=== PATIENT | female | born 1985 | race Caucasian/White ===

== ENCOUNTER 2017-08-12 13:14 | Emergency (ER) | payer OTHER ==
[2017-08-12 14:32] LABS: ADD MAN DIFF? NO
[2017-08-12 14:38] LABS: BASO # 0.1 x10^3/uL (0.0-0.2); BASO % 1 % (0-3); EOS # 0.3 x10^3/uL (0.0-0.7); EOS % 3 % (0-3); HEMATOCRIT 41.9 % (36.0-47.0); HEMOGLOBIN 14.3 g/dL (12.0-15.5); LYMPH # 3.7 x10^3/uL (1.0-4.8); LYMPH % 33 % (24-48); MEAN CORPUSCULAR HEMOGLOBIN 31 pg (25-35); MEAN CORPUSCULAR HGB CONC 34 g/dL (31-37); MEAN CORPUSCULAR VOLUME 90 fL (79-100); MONO # 0.7 x10^3/uL (0.0-1.1); MONO % 6 % (0-9); NEUT # 6.5 x10^3uL (1.8-7.7); NEUT % 58 % (31-73); PLATELET COUNT 367 x10^3/uL (140-400); RED BLOOD COUNT 4.64 x10^6/uL (3.50-5.40); RED CELL DISTRIBUTION WIDTH 13.1 % (11.5-14.5); WHITE BLOOD COUNT 11.3 x10^3/uL (4.0-11.0)
[2017-08-12 14:44] LABS: PROTHROMBIN TIME PATIENT 12.9 SEC (11.7-14.0)
[2017-08-12 14:46] LABS: BILIRUBIN,URINE NEGATIVE (NEG); CLARITY,URINE CLEAR; COLOR,URINE YELLOW; GLUCOSE,URINE NEGATIVE (NEG); NITRITE,URINE NEGATIVE (NEG); PH,URINE 5.5; PROTEIN,URINE NEGATIVE (NEG-TRACE); UROBILINOGEN,URINE 0.2 mg/dL (0.2 mg/dL)
[2017-08-12 14:50] LABS: ANION GAP 12 (6-14); BLOOD UREA NITROGEN 10 mg/dL (7-20); BUN/CREATININE RATIO 13 (6-20); CALCIUM 9.6 mg/dL (8.5-10.1); CARBON DIOXIDE 24 mmol/L (21-32); CHLORIDE 104 mmol/L (98-107); CREATININE 0.8 mg/dL (0.6-1.0); D-DIMER 0.55 ug/mlFEU (0.00-0.50); GFR 82.6; GLUCOSE 90 mg/dL (70-99); POTASSIUM 4.2 mmol/L (3.5-5.1); SODIUM 140 mmol/L (136-145)
[2017-08-12 14:58] LABS: ALBUMIN 3.9 g/dL (3.4-5.0); ALBUMIN/GLOBULIN RATIO 1.1 (1.0-1.7); ALK PHOS 91 U/L (46-116); ALT (SGPT) 24 U/L (14-59); AST (SGOT) 16 U/L (15-37); LIPASE 111 U/L (73-393); TOTAL BILIRUBIN 0.5 mg/dL (0.2-1.0); TOTAL PROTEIN 7.6 g/dL (6.4-8.2)
[2017-08-12 14:59] LABS: TROPONINI < 0.017 ng/mL (0.000-0.055)
[2017-08-12 15:01] LABS: BACTERIA,URINE MANY /HPF (0-FEW); RBC,URINE 0 /HPF (0-2); SQUAMOUS EPITHELIAL CELL,UR MANY /LPF; WBC,URINE 0 /HPF (0-4)
[2017-08-12 15:02] LABS: THYROID STIM HORMONE (TSH) 0.944 uIU/mL (0.358-3.74)
[2017-08-12 15:05] LABS: CKMB INDEX 0.6 % (0-4); CKMB MASS < 0.5 ng/mL (0.0-3.6); CREATINE KINASE 80 U/L (26-192)
[2017-08-12 15:05] LABS: NT-PRO BNP 65 pg/mL (0-124)
[2017-08-12] MEDS: IOHEXOL 300 MG/ML 100ML VIAL. IV (15:05)
[2017-08-12] MEDS: MORPHINE SULFATE 10 MG/ML VIAL. IV (15:49)
[2017-08-12] MEDS: diazePAM 5 MG TABLET PO (16:41)
[2017-08-12] MEDS: fentaNYL PF VIAL 100 MCG/2 ML VIAL IV (16:42)
== END 2017-08-12 17:23 | disposition home or self-care (01) ==
LOC: ER 13:14
DX: M79.672 Pain in left foot (principal); K21.9 Gastro-esophageal reflux disease without esophagitis; Z86.711 Personal history of pulmonary embolism; Z88.1 Allergy status to other antibiotic agents
CPT/HCPCS: 36415; 71045; 71275; 80053; 81001; 82553; 83690; 83735; 83880; 84443; 84484; 85025; 85379; 85610; 87086; 93005; 96374; 96375; 99285-25; J2270; J3010; Q9967

== ENCOUNTER 2018-03-14 23:39 | Emergency (ER) | payer OTHER ==
[~2018-03-14] VITALS: Ht 172.7 cm; Wt 81.6 kg
[~2018-03-14 23:39] MED LIST: BUPR100T7; DIAZ5TAB PO; NAPR500T8 PO; TRAZ-86
[2018-03-14 23:40] VITALS: BP 152/87
--- NOTE | 2018-03-15 00:23 | PHYS DOC ---
Past Medical History Past Medical History: DVT, GERD Past Surgical History: Additional Past Surgical Histo: uterine oblation Alcohol Use: None Drug Use: None Adult General Chief Complaint Chief Complaint: LOWER BACK PAIN OR INJURY [facility] HPI Patient is a 32 year old female who presents with low back pain. Patient had sudden onset of low back pain when she was lifting a laundry basket full of clothes earlier this evening. The pain is in the lower mid and left lumbar area. She does have some radiation of pain down the bilateral posterior thighs. Radiation does not extend to the knees. No weakness, numbness, tingling. No loss of motor strength. No difficulty with urination or BMs. Patient has no prior history of back injury. No recent fever or chills. She was at baseline health prior to onset of symptoms. Review of Systems Review of Systems Constitutional: Denies fever or chills HENT: Denies nasal congestion Respiratory: Denies cough or shortness of breath Cardiovascular: No additional information not addressed in HPI GI: Denies : Denies Musculoskeletal: Denies back pain Integument: Denies rash Neurologic: Denies headache All other systems were reviewed and found to be within normal limits, except as documented in this note. Current Medications Current Medications Current Medications Medications (Trade) Dose Ordered Sig/[place] Start Time Stop Time Status Last Admin Dose Admin Diazepam (Valium) 4 mg 1X ONCE 03/15/18 00:30 03/15/18 00:31 DC 03/15/18 00:34 4 MG Ibuprofen (Motrin) 800 mg 1X ONCE 03/15/18 00:30 03/15/18 00:31 DC 03/15/18 00:33 800 MG Morphine Sulfate (Morphine Sulfate) 4 mg STK-MED ONCE 03/15/18 00:30 03/15/18 00:33 IN Allergies Allergies Allergies Coded Allergies Type Severity Reaction Last Updated Verified ciprofloxacin Allergy Unknown 08/12/17 Yes Physical Exam Physical Exam Constitutional: Well developed, well nourished, mild distress with some antalgic movements, non-toxic appearance HENT: Normocephalic, atraumatic, bilateral external ears normal, oropharynx moist Neck: Normal range of motion, no tenderness Cardiovascular:Heart rate regular rhythm, no murmur Skin: Warm, dry, no erythema, no rash Back: TTP and muscle spasm present over lumbar paraspinal muscles with L worse than Right. Extremities: No tenderness, no edema Neurologic: Alert and oriented X 3, normal motor function, 5/5 motor strength bilateral LE's, 2/4 DTR's at achilles and patellar levels bilat. Sensation to light touch intact over all dermatomes of the bilateral LE's Psychologic: Affect normal Current Patient Data Vital Signs Vital Signs Date Time Temp Pulse Resp B/P (MAP) Pulse Ox O2 Delivery O2 Flow Rate FiO2 03/15/18 00:30 18 97 Room Air 03/14/18 23:40 99 152/87 (108) EKG EKG [] Radiology/Procedures Radiology/Procedures [] Course & Med Decision Making Course & Med Decision Making Pertinent Labs and Imaging studies reviewed. (See chart for details) Patient is evaluated immediately on arrival to her room. She has classic low back strain. Possibly with some bulging disc involvement given her symptoms of radiation of pain down the bilateral thighs. No positive findings on physical examination. No red flag complaints or findings. In the ER, the patient will be given medication for pain and muscle spasm. 01:00: Patient now status post medications for pain. She is feeling much improved. Plan is for discharge home. She is given medications for pain and muscle spasm to use at home. Opiate precautions are discussed. Patient is advised not to work or drive while using strong pain medication. Patient will follow up with her primary care doctor or return to the ER for any new or worsening symptoms. Dragon Disclaimer Dragon Disclaimer This electronic medical record was generated, in whole or in part, using a voice recognition dictation system. Departure Departure Disposition: 01 HOME, SELF-CARE Condition: GOOD Referrals: UNKNOWN PCP NAME (PCP) Scripts Diazepam (DIAZEPAM) 5 Mg Tablet 5 MG PO BID for muscle spasm, #20 TAB Prov: MIKE ZHANG DO 03/15/18 Hydrocodone/Apap 5-325 (NORCO 5-325 TABLET) 1 Each Tablet 1-2 EACH PO PRN Q6HRS PRN for SEVERE PAIN, #20 as needed for pain Prov: MIKE ZHANG DO 03/15/18 Ibuprofen (IBUPROFEN) 800 Mg Tablet 800 MG PO PRN TID PRN for PAIN, #30 TAB take with food or milk to avoid upsetting stomach Prov: MIKE ZHANG DO 03/15/18 MIKE ZHANG DO Mar 15, 2018 00:23
[2018-03-15] MEDS ORDERED: MORPHINE SULFATE 4 MG/ML VIAL. ONE (00:30)
[2018-03-15] MEDS ORDERED: MORPHINE SULFATE 10 MG/ML VIAL. IV ONE (00:30)
[2018-03-15] MEDS ORDERED: diazePAM 2 MG TABLET PO ONE (00:30)
[2018-03-15] MEDS ORDERED: IBUPROFEN 400 MG TABLET. PO ONE (00:30)
[2018-03-15] MEDS ORDERED: IBUP-1060 PO (00:36)
[2018-03-15] MEDS ORDERED: DIAZ5TAB4 PO (00:36)
[2018-03-15] MEDS ORDERED: HYDR-3164 PO (00:36)
== END 2018-03-15 01:05 | disposition home or self-care (01) ==
LOC: ER 23:39
DX: S39.012A Strain of muscle, fascia and tendon of lower back, initial encounter (principal); M79.652 Pain in left thigh; M79.651 Pain in right thigh; K21.9 Gastro-esophageal reflux disease without esophagitis; Z86.718 Personal history of other venous thrombosis and embolism; Z88.1 Allergy status to other antibiotic agents; X50.0XXA Overexertion from strenuous movement or load, initial encounter; Y93.89 Activity, other specified; Y92.89 Other specified places as the place of occurrence of the external cause; Y99.8 Other external cause status
CPT/HCPCS: 96374; 99283; J2270

== ENCOUNTER 2018-10-26 23:33 | Emergency (ER) | payer OTHER ==
[~2018-10-26] VITALS: Ht 165.1 cm; Wt 78.5 kg
[~2018-10-26 23:33] MED LIST changes: +DIAZ5TAB4 PO; +HYDR-3164 PO; +IBUP-1060 PO
[2018-10-27 00:01] VITALS: BP 132/88
[2018-10-27 00:03] LABS: BILIRUBIN,URINE NEGATIVE (NEG); CLARITY,URINE CLEAR; COLOR,URINE YELLOW; NITRITE,URINE NEGATIVE (NEG); PH,URINE 5.5; PROTEIN,URINE NEGATIVE (NEG-TRACE); UROBILINOGEN,URINE 0.2 mg/dL (0.2 mg/dL)
[2018-10-27 00:11] LABS: BACTERIA,URINE MODERATE /HPF (0-FEW); RBC,URINE 0 /HPF (0-2); SQUAMOUS EPITHELIAL CELL,UR MANY /LPF; WBC,URINE OCC /HPF (0-4)
[2018-10-27] MEDS ORDERED: PRED20TA PO (00:52)
[2018-10-27] MEDS ORDERED: ORPH100T PO (00:52)
--- NOTE | 2018-10-27 00:52 | PHYS DOC ---
Past Medical History Past Medical History: DVT, GERD, Other Additional Past Medical Histor: Chronic Back pain Past Surgical History: , Lumbar Laminectomy Additional Past Surgical Histo: uterine ablation Alcohol Use: Occasionally Drug Use: None Adult General Chief Complaint Chief Complaint: PELVIC PAIN HPI HPI Patient is a 33 year old [f__sex] who presents with [] Review of Systems Review of Systems Constitutional: Denies fever or chills [] Eyes: Denies change in visual acuity, redness, or eye pain [] HENT: Denies nasal congestion or sore throat [] Respiratory: Denies cough or shortness of breath [] Cardiovascular: No additional information not addressed in HPI [] GI: Denies abdominal pain, nausea, vomiting, bloody stools or diarrhea [] : Denies dysuria or hematuria [] Musculoskeletal: Denies back pain or joint pain [] Integument: Denies rash or skin lesions [] Neurologic: Denies headache, focal weakness or sensory changes [] Endocrine: Denies polyuria or polydipsia [] All other systems were reviewed and found to be within normal limits, except as documented in this note. Allergies Allergies Allergies Coded Allergies Type Severity Reaction Last Updated Verified ciprofloxacin Allergy Unknown 08/12/17 Yes Physical Exam Physical Exam Constitutional: Well developed, well nourished, no acute distress, non-toxic appearance. [] HENT: Normocephalic, atraumatic, bilateral external ears normal, oropharynx moist, no oral exudates, nose normal. [] Eyes: PERRLA, EOMI, conjunctiva normal, no discharge. [] Neck: Normal range of motion, no tenderness, supple, no stridor. [] Cardiovascular:Heart rate regular rhythm, no murmur [] Lungs & Thorax: Bilateral breath sounds clear to auscultation [] Abdomen: Bowel sounds normal, soft, no tenderness, no masses, no pulsatile masses. [] Skin: Warm, dry, no erythema, no rash. [] Back: No tenderness, no CVA tenderness. [] Extremities: No tenderness, no cyanosis, no clubbing, ROM intact, no edema. [] Neurologic: Alert and oriented X 3, normal motor function, normal sensory function, no focal deficits noted. [] Psychologic: Affect normal, judgement normal, mood normal. [] Current Patient Data Vital Signs Vital Signs Date Time Temp Pulse Resp B/P (MAP) Pulse Ox O2 Delivery O2 Flow Rate FiO2 10/27/18 00:01 98.1 114 16 132/88 (103) 98 Room Air 98.1 Lab Values Laboratory Tests Test 10/26/18 23:40 10/26/18 23:46 Urine Collection Type Unknown Urine Color Yellow Urine Clarity Clear Urine pH 5.5 Urine Specific [place] 1.025 Urine Protein Negative mg/dL (NEG-TRACE) Urine Glucose (UA) Negative mg/dL (NEG) Urine Ketones (Stick) Negative mg/dL (NEG) Urine Blood Negative (NEG) Urine Nitrite Negative (NEG) Urine Bilirubin Negative (NEG) Urine Urobilinogen Dipstick 0.2 mg/dL (0.2 mg/dL) Urine Leukocyte Esterase Negative (NEG) Urine RBC 0 /HPF (0-2) Urine WBC Occ /HPF (0-4) Urine Squamous Epithelial Cells Many /LPF Urine Bacteria Moderate /HPF (0-FEW) Urine Mucus Mod /LPF POC Urine HCG, Qualitative Hcg negative (Negative) EKG EKG [] Radiology/Procedures Radiology/Procedures [] Course & Med Decision Making Course & Med Decision Making Pertinent Labs and Imaging studies reviewed. (See chart for details) [] Dragon Disclaimer Dragon Disclaimer This electronic medical record was generated, in whole or in part, using a voice recognition dictation system. Departure Departure Impression: Primary Impression: Back pain Disposition: HOME, SELF-CARE Condition: STABLE Referrals: UNKNOWN PCP NAME (PCP) MIKE MORAN MD Patient Instructions: Back Pain, Adult, [id number] Scripts Orphenadrine Citrate (ORPHENADRINE CITRATE) 100 Mg Tablet.er 100 MG PO BID PRN for MUSCLE PAIN, #14 Prov: CA JACOBO DO 10/27/18 Prednisone (PREDNISONE) 20 Mg Tablet 2 TAB PO DAILY, #8 TAB Prov: CA JACOBO DO 10/27/18 Problem Qualifiers Primary Impression: Back pain Back pain location: low back pain Chronicity: acute Back pain laterality: left Sciatica presence: with sciatica Sciatica laterality: sciatica of left side Qualified Codes: M54.42 - Lumbago with sciatica, left side CA JACOBO DO Oct 27, 2018 00:52
[2018-10-27] MEDS ORDERED: ORPHENADRINE CITRATE 60 MG/2 ML VIAL. IM ONE (01:15)
[2018-10-27] MEDS ORDERED: KETOROLAC 30 MG/ML VIAL. IM ONE (01:15)
[2018-10-27] MEDS ORDERED: DEXAMETHASONE 4 MG TABLET PO ONE (01:15)
== END 2018-10-27 01:20 | disposition home or self-care (01) ==
LOC: ER 23:33
DX: M54.42 Lumbago with sciatica, left side (principal); G89.29 Other chronic pain; K21.9 Gastro-esophageal reflux disease without esophagitis; Z86.718 Personal history of other venous thrombosis and embolism; Z98.890 Other specified postprocedural states; Z88.1 Allergy status to other antibiotic agents
CPT/HCPCS: 81001; 81025; 87086; 96372; 99284; J1885; J2360; J8540

== ENCOUNTER 2019-04-09 01:49 | Emergency (ER) | payer MEDICAID ==
[~2019-04-09] VITALS: Ht 165.1 cm; Wt 79.4 kg
[~2019-04-09 01:49] MED LIST changes: +ORPH100T PO; +PRED20TA PO; +TRAZ-123 PO; -TRAZ-86
[2019-04-09 03:16] LABS: BILIRUBIN,URINE NEGATIVE (NEG); CLARITY,URINE CLOUDY; COLOR,URINE YELLOW; NITRITE,URINE NEGATIVE (NEG); PH,URINE 5.5; PROTEIN,URINE NEGATIVE (NEG-TRACE); UROBILINOGEN,URINE 0.2 mg/dL (0.2 mg/dL)
--- NOTE | 2019-04-09 03:18 | PHYS DOC ---
Past Medical History Past Medical History: DVT, GERD, Other Additional Past Medical Histor: Chronic Back pain Past Surgical History: , Lumbar Laminectomy Additional Past Surgical Histo: uterine ablation Additional Information: Current ED smoker, 3-4 cigarrettes a day. Alcohol Use: None Drug Use: None Adult General Chief Complaint Chief Complaint: ABDOMINAL PAIN HPI HPI Patient is a 33 year old female who presents with abdominal pain. Onset yesterday. Patient states pain was intermittent then woke her up at midnight tonight. Location: Right hip radiates to groin. character pain is described as sharp. Associated sx: nausea. Patient denies vomiting, diarrhea, chest pain, shortness of breath, fevers, chills, constipation, changes in bowel or bladder habits. Patient also denies trauma to the area. Patient states that she has maintained a normal diet and not eaten anything out of the ordinary recently. Alleviating factors are heat and pressure to the area. Review of Systems Review of Systems Constitutional: Denies fever or chills Eyes: Denies redness or eye pain HENT: Denies nasal congestion or sore throat Respiratory: Denies cough or shortness of breath Cardiovascular: Denies chest pain or palpitations GI: Reports mild abdominal pain, nausea, or vomiting : Denies dysuria or hematuria Musculoskeletal: Denies back pain or joint pain. Right hip pain that radiates to groin Integument: Denies rash or skin lesions Neurologic: Denies headache, focal weakness or sensory changes Complete systems were reviewed and found to be within normal limits, except as documented in this note. Current Medications Current Medications Current Medications Medications (Trade) Dose Ordered Sig/[facility] Start Time Stop Time Status Last Admin Dose Admin Ceftriaxone Sodium (Rocephin) 1 gm 1X ONCE 04/09/19 05:00 04/09/19 05:01 Famotidine (Pepcid Vial) 20 mg 1X ONCE 04/09/19 03:30 04/09/19 03:31 DC 04/09/19 03:54 20 MG Ketorolac Tromethamine (Toradol 15mg Vial) 15 mg 1X ONCE 04/09/19 03:30 04/09/19 03:31 DC 04/09/19 03:54 15 MG Ondansetron HCl (Zofran) 4 mg 1X ONCE 04/09/19 03:30 04/09/19 03:31 DC 04/09/19 03:54 4 MG Sodium Chloride 1,000 ml @ 1,000 mls/hr 1X ONCE 04/09/19 03:30 04/09/19 04:29 DC 04/09/19 03:53 1,000 MLS/HR Allergies Allergies Allergies Coded Allergies Type Severity Reaction Last Updated Verified ciprofloxacin Allergy Unknown 08/12/17 Yes Physical Exam Physical Exam Constitutional: Well developed, well nourished, no acute distress, non-toxic appearance HENT: Normocephalic, atraumatic, oropharynx moist Eyes: PERRL, EOMI, conjunctiva normal, no discharge Neck: Normal range of motion, no tenderness, supple Cardiovascular: Heart rate normal, regular rhythm Lungs & Thorax: Bilateral breath sounds clear to auscultation, no wheezing Abdomen: Soft, no tenderness, no guarding, no rebound, nondistended Skin: Warm, dry, no erythema, no rash Back: No tenderness, no CVA tenderness Musculoskeletal: Hip and pelvis grossly normal without deformity or swelling. Extremities: No tenderness, ROM intact, no edema Neurologic: Alert and oriented X 3, normal motor function, normal sensory function, no focal deficits noted Psychologic: Affect normal, judgement normal, mood normal Current Patient Data Vital Signs Vital Signs Date Time Temp Pulse Resp B/P (MAP) Pulse Ox O2 Delivery O2 Flow Rate FiO2 04/09/19 02:50 98.5 90 16 121/74 (90) 98 Room Air 98.5 Lab Values Laboratory Tests Test 04/09/19 03:00 04/09/19 03:08 04/09/19 03:15 Urine Collection Type Unknown Urine Color Yellow Urine Clarity Cloudy Urine pH 5.5 Urine Specific [place] >=1.030 Urine Protein Negative mg/dL (NEG-TRACE) Urine Glucose (UA) Negative mg/dL (NEG) Urine Ketones (Stick) Negative mg/dL (NEG) Urine Blood Large (NEG) Urine Nitrite Negative (NEG) Urine Bilirubin Negative (NEG) Urine Urobilinogen Dipstick 0.2 mg/dL (0.2 mg/dL) Urine Leukocyte Esterase Moderate (NEG) Urine RBC Occ /HPF (0-2) Urine WBC 20-40 /HPF (0-4) Urine Squamous Epithelial Cells Many /LPF Urine Bacteria Many /HPF (0-FEW) Urine Mucus Mod /LPF POC Urine HCG, Qualitative Hcg negative (Negative) White Blood Count 10.3 x10^3/uL (4.0-11.0) Red Blood Count 3.88 x10^6/uL (3.50-5.40) Hemoglobin 12.2 g/dL (12.0-15.5) Hematocrit 35.4 % (36.0-47.0) L Mean Corpuscular Volume 91 fL (79-100) Mean Corpuscular Hemoglobin 32 pg (25-35) Mean Corpuscular Hemoglobin Concent 35 g/dL (31-37) Red Cell Distribution Width 13.0 % (11.5-14.5) Platelet Count 346 x10^3/uL (140-400) Neutrophils (%) (Auto) 67 % (31-73) Lymphocytes (%) (Auto) 22 % (24-48) L Monocytes (%) (Auto) 8 % (0-9) Eosinophils (%) (Auto) 2 % (0-3) Basophils (%) (Auto) 1 % (0-3) Neutrophils # (Auto) 7.0 x10^3/uL (1.8-7.7) Lymphocytes # (Auto) 2.3 x10^3/uL (1.0-4.8) Monocytes # (Auto) 0.9 x10^3/uL (0.0-1.1) Eosinophils # (Auto) 0.2 x10^3/uL (0.0-0.7) Basophils # (Auto) 0.1 x10^3/uL (0.0-0.2) Sodium Level 140 mmol/L (136-145) Potassium Level 4.0 mmol/L (3.5-5.1) Chloride Level 104 mmol/L (98-107) Carbon Dioxide Level 28 mmol/L (21-32) Anion Gap 8 (6-14) Blood Urea Nitrogen 20 mg/dL (7-20) Creatinine 1.0 mg/dL (0.6-1.0) Estimated GFR (Cockcroft-Gault) 63.1 BUN/Creatinine Ratio 20 (6-20) Glucose Level 88 mg/dL (70-99) Calcium Level 8.9 mg/dL (8.5-10.1) Magnesium Level 1.9 mg/dL (1.8-2.4) Total Bilirubin 0.3 mg/dL (0.2-1.0) Aspartate Amino Transferase (AST) 27 U/L (15-37) Alanine Aminotransferase (ALT) 29 U/L (14-59) Alkaline Phosphatase 59 U/L (46-116) Total Protein 6.9 g/dL (6.4-8.2) Albumin 3.4 g/dL (3.4-5.0) Albumin/Globulin Ratio 1.0 (1.0-1.7) Lipase 160 U/L (73-393) Laboratory Tests 04/09/19 03:15 Laboratory Tests 04/09/19 03:15 EKG EKG [] Radiology/Procedures Radiology/Procedures PROCEDURE: CT ABDOMEN PELVIS WO CONTRAST CT abdomen and pelvis without contrast PQRS statement: CT scans at this facility use dose reduction including either automated exposure control, iterative reconstructions, and /or weight based radiation dosing via mA and kV modification when appropriate to reduce radiation dose to as low as reasonably achievable. HISTORY: Right flank pain. Ureteral calculi. COMPARISON: CT abdomen and pelvis May 28, 2013. Abdomen findings: Subpleural thin linear atelectasis or scarring posterior right lower lobe. This is stable. Pancreas, spleen, adrenal glands, kidneys, gallbladder and liver are unremarkable. No urinary calculi or hydronephrosis. The appendix is negative. No abdominal fluid. Pelvis findings: Pelvic phleboliths stable prior study. No bladder calculi. Bladder, uterus, ovaries, rectum and bones are unremarkable. No pelvic free fluid evident. IMPRESSION: No acute process. Appendix is negative. No urinary calculi or hydronephrosis. Electronically signed by: Gerber Walton MD (04/09/2019 4:07 AM) [facility] Course & Med Decision Making Course & Med Decision Making Pertinent Labs and Imaging studies reviewed. (See chart for details) [] Dragon Disclaimer Dragon Disclaimer This electronic medical record was generated, in whole or in part, using a voice recognition dictation system. Departure Departure Impression: Primary Impression: Pyelonephritis Disposition: 01 HOME, SELF-CARE Condition: STABLE Referrals: RAYNA FLETCHER PA-C (PCP) Patient Instructions: Pyelonephritis, Adult, [id number] Scripts Hydrocodone/Apap 5-325 (NORCO 5-325 TABLET) 1 Each Tablet 0.5-1 TAB PO PRN Q6HRS PRN for PAIN, #8 TAB 0 Refills Prov: JACOBO,CA R DO 04/09/19 Ondansetron (ONDANSETRON ODT) 4 Mg Tab.rapdis 1 TAB PO PRN Q6-8HRS PRN for NAUSEA, #16 TAB Prov: CA JACOBO DO 04/09/19 Cephalexin (KEFLEX) 500 Mg Capsule 500 MG PO TID for 7 Days, #21 CAP Prov: AC JACOBO DO 04/09/19 CA JACOBO DO Apr 09, 2019 03:18
[2019-04-09 03:20] LABS: BASO # 0.1 x10^3/uL (0.0-0.2); BASO % 1 % (0-3); EOS # 0.2 x10^3/uL (0.0-0.7); EOS % 2 % (0-3); HEMATOCRIT 35.4 % (36.0-47.0); HEMOGLOBIN 12.2 g/dL (12.0-15.5); LYMPH # 2.3 x10^3/uL (1.0-4.8); LYMPH % 22 % (24-48); MEAN CORPUSCULAR HEMOGLOBIN 32 pg (25-35); MEAN CORPUSCULAR HGB CONC 35 g/dL (31-37); MEAN CORPUSCULAR VOLUME 91 fL (79-100); MONO # 0.9 x10^3/uL (0.0-1.1); MONO % 8 % (0-9); NEUT % 67 % (31-73); PLATELET COUNT 346 x10^3/uL (140-400); RED BLOOD COUNT 3.88 x10^6/uL (3.50-5.40); WHITE BLOOD COUNT 10.3 x10^3/uL (4.0-11.0)
[2019-04-09 03:25] LABS: BACTERIA,URINE MANY /HPF (0-FEW); RBC,URINE OCC /HPF (0-2); WBC,URINE 20-40 /HPF (0-4)
[2019-04-09 03:26] LABS: SQUAMOUS EPITHELIAL CELL,UR MANY /LPF
[2019-04-09 03:30] LABS: CALCIUM 8.9 mg/dL (8.5-10.1); GFR 63.1
[2019-04-09] MEDS ORDERED: KETOROLAC 15 MG/ML VIAL. IVP ONE (03:30)
[2019-04-09] MEDS ORDERED: ONDANSETRON PF 4 MG/2 ML VIAL. IV ONE (03:30)
[2019-04-09] MEDS ORDERED: FAMOTIDINE 20 MG/2 ML VIAL IVP ONE (03:30)
[2019-04-09] MEDS ORDERED: IV NORMAL SALINE 1000ML BAG 1,000 ML IV ONE (03:30)
[2019-04-09 03:40] LABS: ALBUMIN 3.4 g/dL (3.4-5.0); MAGNESIUM 1.9 mg/dL (1.8-2.4); TOTAL BILIRUBIN 0.3 mg/dL (0.2-1.0); TOTAL PROTEIN 6.9 g/dL (6.4-8.2)
--- NOTE | 2019-04-09 04:10 | RAD ---
CT abdomen and pelvis without contrast PQRS statement: CT scans at this facility use dose reduction including either automated exposure control, iterative reconstructions, and /or weight based radiation dosing via mA and kV modification when appropriate to reduce radiation dose to as low as reasonably achievable. HISTORY: Right flank pain. Ureteral calculi. COMPARISON: CT abdomen and pelvis May 28, 2013. Abdomen findings: Subpleural thin linear atelectasis or scarring posterior right lower lobe. This is stable. Pancreas, spleen, adrenal glands, kidneys, gallbladder and liver are unremarkable. No urinary calculi or hydronephrosis. The appendix is negative. No abdominal fluid. Pelvis findings: Pelvic phleboliths stable prior study. No bladder calculi. Bladder, uterus, ovaries, rectum and bones are unremarkable. No pelvic free fluid evident. IMPRESSION: No acute process. Appendix is negative. No urinary calculi or hydronephrosis. Electronically signed by: Gerber Walton MD (04/09/2019 4:07 AM) [facility]
[2019-04-09] MEDS ORDERED: CEPH-264 PO (04:40)
[2019-04-09] MEDS ORDERED: HYDR-3164 PO (04:52)
[2019-04-09] MEDS ORDERED: ONDA4TAB12 PO (04:52)
[2019-04-09 04:55] VITALS: BP 90/52
[2019-04-09] MEDS ORDERED: cefTRIAXone IV Push 1 GM VIAL. IVP ONE (05:00)
[2019-04-09] MEDS ORDERED: PROG200C10 PO (17:47)
[2019-04-09] MEDS ORDERED: PHEN37.5 PO ×2 (17:47)
[2019-04-09] MEDS ORDERED: DIAZ5TAB PO (17:47)
[2019-04-09] MEDS ORDERED: OMEP40CA45 PO (17:47)
[2019-04-12] MEDS ORDERED: PRED20TA PO (11:21)
[2019-04-12] MEDS ORDERED: HYDR-3164 PO (11:21)
[2019-04-12] MEDS ORDERED: CYCL10TA2 PO (11:21)
== END 2019-04-09 05:12 | disposition home or self-care (01) ==
LOC: ER 01:49
DX: N12 Tubulo-interstitial nephritis, not specified as acute or chronic (principal); M25.551 Pain in right hip; G89.29 Other chronic pain; K21.9 Gastro-esophageal reflux disease without esophagitis; Z86.718 Personal history of other venous thrombosis and embolism; F17.210 Nicotine dependence, cigarettes, uncomplicated; Z98.890 Other specified postprocedural states; Z88.1 Allergy status to other antibiotic agents
CPT/HCPCS: 36415; 74176; 80053; 81001; 81025; 83690; 83735; 85025; 87086; 96374; 96375; 99285; J0696; J1885; J2405; J3490; J7030

== ENCOUNTER 2020-04-15 10:28 | Inpatient (IN) | payer MEDICAID ==
[~2020-04-15] VITALS: Ht 167.6 cm; Wt 80.0 kg
[~2020-04-15 10:28] MED LIST changes: +CEPH-264 PO; +CYCL10TA2 PO; +OMEP40CA7 PO; +ONDA4TAB12 PO; +PHEN37.5 PO; +PROG200C10 PO
--- NOTE | 2020-04-15 11:14 | PHYS DOC ---
Past Medical History Past Medical History: DVT, GERD, Other Additional Past Medical Histor: Chronic Back pain (KRISTOPHER MOSER MANAGER CONTACT) Past Surgical History: , Lumbar Laminectomy Additional Past Surgical Histo: uterine ablation (KRISTOPHER MOSER MANAGER CONTACT) Smoking Status: Current Every Day Smoker Alcohol Use: None Drug Use: None (KRISTOPHER MOSER MANAGER CONTACT) General Adult EDM: Chief Complaint: ABDOMINAL PAIN HPI: HPI: Patient is a 34 year old female who presents with last night began having right lower quadrant pain that sharp and shooting and radiates from her mid right side of abdomen down to lower right abdomen. She states that sharp and shooting. Patient did start her period today. She has had a uterine ablation but states she still has periods. Patient states that she has had chills and also nausea and some vomiting. She states that her mouth is very dry. She states the pain comes and goes contraction-like. Patient rates her pain a 10 out of 10. Patient is very anxious and curled up in a ball. Patient has a history of utero calculi, uterine ablation, , lumbar laminectomy, chronic back pain, BEREKET D, DVT, smoker. (KRISTOPHER MOSER MANAGER CONTACT) Review of Systems: Review of Systems: Constitutional: Denies fever. + chills. [] Eyes: Denies change in visual acuity. [] HENT: Denies nasal congestion or sore throat. [] Respiratory: Denies cough or shortness of breath. [] Cardiovascular: Denies chest pain or edema. [] GI: + abdominal pain, +nausea, +vomiting, denies bloody stools or diarrhea. [] : Denies dysuria. [] Musculoskeletal: Denies back pain or joint pain. [] Integument: Denies rash. [] Neurologic: Denies headache, focal weakness or sensory changes. [] Endocrine: Denies polyuria or polydipsia. [] Lymphatic: Denies swollen glands. [] Psychiatric: Denies depression or anxiety. [] (KRISTOPHER MOSER MANAGER CONTACT) Heart Score: Risk Factors: Risk Factors: DM, Current or recent (<one month) smoker, HTN, HLP, family history of CAD, obesity. Risk Scores: Score 0 - 3: 2.5% MACE over next 6 weeks - Discharge Home Score 4 - 6: 20.3% MACE over next 6 weeks - Admit for Clinical Observation Score 7 - 10: 72.7% MACE over next 6 weeks - Early Invasive Strategies (KRISTOPHER MOSER APRN) Current Medications: Current Medications Medications (Trade) Dose Ordered Sig/Mellissa Start Time Stop Time Status Last Admin Dose Admin Fentanyl Citrate (Fentanyl 2ml Vial) 50 mcg 1X ONCE 04/15/20 11:15 04/15/20 11:16 UNV Ketorolac Tromethamine (Toradol 30mg Vial) 30 mg 1X ONCE 04/15/20 11:15 04/15/20 11:16 UNV Ondansetron HCl (Zofran) 4 mg 1X ONCE 04/15/20 11:15 04/15/20 11:16 UNV Sodium Chloride 1,000 ml @ 1,000 mls/hr 1X ONCE 04/15/20 11:15 04/15/20 12:14 (KRISTOPHER MOSER APRN) Allergies: Allergies: Allergies Coded Allergies Type Severity Reaction Last Updated Verified ciprofloxacin Allergy Unknown 08/12/17 Yes (KRISTOPHER MOSER APRN) Physical Exam: PE: Constitutional: Well developed, well nourished, no acute distress, non-toxic appearance. [] HENT: Normocephalic, atraumatic, bilateral external ears normal, oropharynx moist, no oral exudates, nose normal. [] Eyes: PERRLA, EOMI, conjunctiva normal, no discharge. [] Neck: Normal range of motion, no tenderness, supple, no stridor. [] Cardiovascular:Heart rate regular rhythm, no murmur [] Lungs & Thorax: Bilateral breath sounds clear to auscultation [] Abdomen: Bowel sounds normal, soft, no tenderness, no masses, no pulsatile masses. [] Skin: Warm, dry, no erythema, no rash. [] Back: No tenderness, no CVA tenderness. [] Extremities: No tenderness, no cyanosis, no clubbing, ROM intact, no edema. [] Neurologic: Alert and oriented X 3, normal motor function, normal sensory function, no focal deficits noted. [] Psychologic: Affect normal, judgement normal, mood normal. Anxious [] (KRISTOPHER MOSER APRN) Current Patient Data: Vital Signs: Vital Signs Date Time Temp Pulse Resp B/P (MAP) Pulse Ox O2 Delivery O2 Flow Rate FiO2 04/15/20 11:02 97.8 62 18 128/68 (88) 100 Room Air 97.8 (KRISTOPHER MOSER APRN) EKG: EKG: [] (KRISTOPHER MOSER APRN) Radiology/Procedures: Radiology/Procedures: [] Impression: [facility] [address] [place] [address] IMAGING REPORT Signed PATIENT: HOMAR FARR AACCOUNT: [id number] : 1985 LOCATION: ER AGE: 34 SEX: F EXAM STATUS: REG ER ORD. PHYSICIAN: KRISTOPHER MOSER APRN REASON: RLQ pain, fever, vomiting PROCEDURE: CT ABD PELV W/ IV CONTRST ONLY CT ABDOMEN+PELVIS W History: RLQ pain, fever, vomiting Comparison: None. Technique: After administration of intravenous contrast, helical CT of the abdomen and pelvis was performed from the lung bases through the ischial tuberosities. Coronal and sagittal reconstructions were obtained. 75 mL of Omnipaque 300 were used. One or more of the following dose reduction techniques were utilized: Automated exposure control (AEC), Adjustment of mA and/or kV according to patient size, Use of iterative reconstruction technique such as ASiR, CT scan done according to ALARA and image gently/image wisely Abdomen Findings: The visualized lung bases are clear. The liver, pancreas, spleen, and bilateral adrenal glands are normal. Gallbladder wall thickening. Symmetric renal enhancement. There is no focal renal mass. There is no hydronephrosis. The visualized loops of small bowel are normal. The visualized loops of large bowel are normal. There is no evidence of bowel obstruction. Appendix is normal. There is no free fluid. There is no mesenteric or retroperitoneal adenopathy. The abdominal aorta is normal in caliber. Pelvis Findings: Urinary bladder is decompressed. Uterus is present. No pelvic free fluid. There is no pelvic or inguinal adenopathy. There is no acute bony abnormality. IMPRESSION: Gallbladder wall thickening. Correlate with laboratory values, and consider ultrasound if there is concern for acute cholecystitis. Electronically signed by: Bo Yoder MD (04/15/2020 1:19 PM) [id number] DICTATED and SIGNED BY: BO YODER MD DATE: 04/15/20 [id number] [facility] [address] [place] [address] IMAGING REPORT Signed PATIENT: HOMAR FARR AACCOUNT: [id number] : 1985 LOCATION: ER AGE: 34 SEX: F EXAM STATUS: REG ER ORD. PHYSICIAN: KRISTOPHER MOSER APRN REASON: gall bladder abnormal on CT PROCEDURE: ABDOMEN LTD Examination: Ultrasound abdomen limited HISTORY: History of abnormal gallbladder COMPARISON: CT same day exam FINDINGS: The liver length measures 16.7 cm. Increased echogenicity identified in the liver likely hepatic steatosis. The gallbladder is mildly distended. There is somewhat thickened appearing gallbladder wall with minimal hypoechogenicity identified in the liver abutting the gallbladder wall could be pericholecystic fluid. The common bile duct measures 6 mm in transverse dimension. The right kidney measures 11.5 x 4.1 cm . The visualized pancreas grossly appears unremarkable. Visualized IVC within normal limits of dimension. IMPRESSION: 1. Mild pericholecystic fluid identified in the perihepatic region. Underlying cholecystitis is not excluded. Recommend HIDA scan. 2. Mild hepatic steatosis. 3. Mild dilated common bile duct. Electronically signed by: Micheal Linder MD (04/15/2020 2:39 PM) [id number] DICTATED and SIGNED BY: MICHEAL LINDER MD DATE: 04/15/20 [id number] (KRISTOPHER MOSER APRN) Course & Med Decision Making: Course & Med Decision Making Pertinent Labs and Imaging studies reviewed. (See chart for details) See HPI. Alert and oriented x4. Ambulatory with a steady gait. Speaks in full clear sentences. No CVA tenderness. No abdominal tenderness. Abdomen is soft. Patient denies chest pain, shortness of air, recent illness, diarrhea, constipation, back pain, urinary symptoms, abnormal vaginal discharge, anus, headache. Patient is given normal saline, Toradol, fentanyl, Zofran in the ED. Patient is still in pain and getting fentanyl. I have ordered Zosyn. Ultrasound shows cholecystitis. Patient will be admitted by hospitalist. [] (KRISTOPHER MOSER APRN) Dragon Disclaimer: Dragon Disclaimer: This electronic medical record was generated, in whole or in part, using a voice recognition dictation system. (KRISTOPHER MOSER APRN) Departure Departure Impression: Primary Impression: Cholecystitis Disposition: ADMITTED INPT THIS HOSP Admitting Physician: LUCY (KRISTOPHER MOSER APRN) Condition: STABLE Attending Signature Attending Signature I have reviewed the PA/RESIDENTIAL FEE APPRAISER's note and plan of care. I was available for consultation as needed during the patient's visit in the emergency department. I agree with the clinical impression, plan, and disposition. (CA JACOBO DO) KRISTOPHER MOSER APRN Apr 15, 2020 11:14 CA JACOBO DO Apr 16, 2020 18:51
[2020-04-15] MEDS ORDERED: IV NORMAL SALINE 1000ML BAG 1,000 ML IV ONE (11:15)
[2020-04-15] MEDS ORDERED: KETOROLAC 30 MG/ML VIAL. IVP ONE (11:15)
[2020-04-15] MEDS ORDERED: ONDANSETRON PF 4 MG/2 ML VIAL. IVP ONE (11:15)
[2020-04-15] MEDS ORDERED: fentaNYL PF VIAL 100 MCG/2 ML VIAL IVP ONE ×2 (11:15→14:30)
[2020-04-15 11:24] LABS: BASO % 0 % (0-3); EOS # 0.1 x10^3/uL (0.0-0.7); EOS % 0 % (0-3); HEMATOCRIT 37.5 % (36.0-47.0); HEMOGLOBIN 12.6 g/dL (12.0-15.5); LYMPH # 1.1 x10^3/uL (1.0-4.8); LYMPH % 9 % (24-48); MEAN CORPUSCULAR HEMOGLOBIN 32 pg (25-35); MEAN CORPUSCULAR HGB CONC 34 g/dL (31-37); MEAN CORPUSCULAR VOLUME 95 fL (79-100); MONO # 0.5 x10^3/uL (0.0-1.1); MONO % 4 % (0-9); NEUT # 11.3 x10^3/uL (1.8-7.7); NEUT % 87 % (31-73); PLATELET COUNT 236 x10^3/uL (140-400); RED BLOOD COUNT 3.95 x10^6/uL (3.50-5.40); RED CELL DISTRIBUTION WIDTH 13.1 % (11.5-14.5); WHITE BLOOD COUNT 12.9 x10^3/uL (4.0-11.0)
[2020-04-15 11:31] LABS: CALCIUM 8.6 mg/dL (8.5-10.1); CREATININE 0.9 mg/dL (0.6-1.0); GFR 70.8
[2020-04-15] MEDS ORDERED: CONTRAST GIVEN. MC PRN (11:45)
[2020-04-15] MEDS ORDERED: IOHEXOL 300 MG/ML 100ML VIAL. IV ONE (11:45)
[2020-04-15 11:46] LABS: ALBUMIN 3.6 g/dL (3.4-5.0); ALBUMIN/GLOBULIN RATIO 1.2 (1.0-1.7); TOTAL BILIRUBIN 0.5 mg/dL (0.2-1.0); TOTAL PROTEIN 6.6 g/dL (6.4-8.2)
[2020-04-15 11:58] LABS: % BANDS 3 % (0-9); % LYMPHS 9 % (24-48); % MONOS 5 % (0-10); % SEGS 83 % (35-66); PLT ESTIMATE ADEQUATE (ADEQUATE)
[2020-04-15 12:25] LABS: BILIRUBIN,URINE NEGATIVE (NEG); CLARITY,URINE TURBID; COLOR,URINE YELLOW; NITRITE,URINE NEGATIVE (NEG); PH,URINE 8.5 (<5.0-8.0); PROTEIN,URINE NEGATIVE (NEG-TRACE)
[2020-04-15 12:28] LABS: AMPHETAMINE/METHAMPHETAMINE NEG (NEG); BARBITURATES NEG (NEG); BENZODIAZEPINES NEG (NEG); CANNABINOIDS POS (NEG); COCAINE POS (NEG); METHADONE NEG (NEG); OPIATES NEG (NEG); PHENCYCLIDINE NEG (NEG)
[2020-04-15 13:00] LABS: AMORPHOUS SEDIMENT,UR PRESENT /HPF
[2020-04-15 13:01] LABS: BACTERIA,URINE MANY /HPF (0-FEW); RBC,URINE 0 /HPF (0-2)
--- NOTE | 2020-04-15 13:22 | RAD ---
CT ABDOMEN+PELVIS W History: RLQ pain, fever, vomiting Comparison: None. Technique: After administration of intravenous contrast, helical CT of the abdomen and pelvis was per formed from the lung bases through the ischial tuberosities. Coronal and sagittal reconstructions wer e obtained. 75 mL of Omnipaque 300 were used. One or more of the following dose reduction techniques were utilized: Automated exposure control (AEC), Adjustment of mA and/or kV according to patient size , Use of iterative reconstruction technique such as ASiR, CT scan done according to ALARA and image g ently/image wisely Abdomen Findings: The visualized lung bases are clear. The liver, pancreas, spleen, and bilateral adrenal glands are normal. Gallbladder wall thickening. Symmetric renal enhancement. There is no focal renal mass. There is no hydronephrosis. The visualized loops of small bowel are normal. The visualized loops of large bowel are normal. There is no evidence of bowel obstruction. Appendix is normal. There is no free fluid. There is no mesenteric or retroperitoneal adenopathy. The abdominal aorta is normal in caliber. Pelvis Findings: Urinary bladder is decompressed. Uterus is present. No pelvic free fluid. There is no pelvic or ingui nal adenopathy. There is no acute bony abnormality. IMPRESSION: Gallbladder wall thickening. Correlate with laboratory values, and consider ultrasound if there is co ncern for acute cholecystitis. Electronically signed by: Vicente Yoder MD (04/15/2020 1:19 PM) [id number]
--- NOTE | 2020-04-15 14:42 | RAD ---
Examination: Ultrasound abdomen limited HISTORY: History of abnormal gallbladder COMPARISON: CT same day exam FINDINGS: The liver length measures 16.7 cm. Increased echogenicity identified in the liver likely hepatic stea tosis. The gallbladder is mildly distended. There is somewhat thickened appearing gallbladder wall wi th minimal hypoechogenicity identified in the liver abutting the gallbladder wall could be perichole cystic fluid. The common bile duct measures 6 mm in transverse dimension. The right kidney measures 1 1.5 x 4.1 cm . The visualized pancreas grossly appears unremarkable. Visualized IVC within normal bishop its of dimension. IMPRESSION: 1. Mild pericholecystic fluid identified in the perihepatic region. Underlying cholecystitis is not e xcluded. Recommend HIDA scan. 2. Mild hepatic steatosis. 3. Mild dilated common bile duct. Electronically signed by: Micheal Linder MD (04/15/2020 2:39 PM) [id number]
[2020-04-15] MEDS ORDERED: PIPERACILLIN/TAZOBACTAM 3.375 GM in IV NORMAL SALINE 50ML 50 ML IV ONE (15:00)
[2020-04-15] MEDS ORDERED: ONDANSETRON PF 4 MG/2 ML VIAL. IV PRN (16:00)
[2020-04-15] MEDS: IV NORMAL SALINE 1000ML BAG 1,000 ML IV SCH ×2 (17:21→23:46)
[2020-04-15] MEDS: fentaNYL PF VIAL 100 MCG/2 ML VIAL IV PRN ×3 (17:55→23:40)
[2020-04-15 19:00] VITALS: BP 102/64
--- NOTE | 2020-04-15 19:49 | HP ---
ADMIT DATE: 04/15/2020 CHIEF COMPLAINT: Abdominal pain. 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 Basically, she has been developing abdominal pain described it as very sharp in the right lower quadrant. She has been having some shooting pains to the mid side of her abdomen. She took some home meds, but that did not seem to help. It is worse with food, better with no food. She decided to have her 18-year-old son drive her into the hospital. She has been evaluated in the ER, where we did some imaging. Ultrasound of the abdomen is confirming cholecystitis. We are going to admit the patient, start IV antibiotics and consult General Surgery. PAST MEDICAL HISTORY: Renal stones, DVT, GERD, chronic back pain, , lumbar laminectomy, uterine ablation, tobacco abuse. ALLERGIES: CIPRO. FAMILY HISTORY: Diabetes. SOCIAL HISTORY: She smokes. No drink or drugs. She works at [employer] in the kitchen. She has 2 teenage children at home. MEDICATIONS: Reviewed, please refer to the MRAD. REVIEW OF SYSTEMS: GENERAL: No history of weight change, weakness or fevers. SKIN: No bruising, hair changes or rashes. EYES: No blurred, double or loss of vision. NOSE AND THROAT: No history of nosebleeds, hoarseness or sore throat. HEART: No history of palpitations, chest pain or shortness of breath on exertion. LUNGS: Denies cough, hemoptysis, wheezing or shortness of breath. GASTROINTESTINAL: She complains of abdominal pain. GENITOURINARY: No history of frequency, urgency, hesitancy or nocturia. NEUROLOGIC: Denies history of numbness, tingling, tremor or weakness. PSYCHIATRIC: No history of panic, anxiety or depression. ENDOCRINE: No history of heat or cold intolerance, polyuria or polydipsia. EXTREMITIES: Denies muscle weakness, joint pain, pain on walking or stiffness. PHYSICAL EXAMINATION: VITALS: Within normal limits and are stable. GENERAL: No apparent distress. Alert and oriented. HEENT: Normal cephalic atraumatic, external auditory canals are patent EYES: Extraocular muscles are intact, pupils are equally round and reactive to light and accommodation MUSCULOSKELETAL: Well developed, well nourished, good range of motion ENDOCRINE: No thyromegaly was palpated LYMPHATICS: No cervical chain or axillary nodes were noted HEMATOPOIETIC: No bruising NECK: Supple, no JVD, no thyromegaly was noted. LUNGS: Clear to auscultation in all lung soliz without rhonchi or wheezing. HEART: RRR, S1, S2 present. Peripheral pulses intact, no obvious murmurs were noted. ABDOMEN: She has decreased bowel sounds and tenderness of the right upper quadrant. EXTREMITIES: Without any cyanosis, clubbing, or edema. Pedal pulses intact, Homans sign is negative. NEUROLOGIC: Normal speech, normal tone. A & O x3, moves all extremities, no obvious focal deficits. PSYCHIATRIC: Normal affect, normal mood. Stable. SKIN: No ulcerations or rashes, good skin turgor, no jaundice. VASCULAR: Good capillary refill, neurovascular bundle appears to be intact. LABORATORY DATA: White count 13. Ultrasound of the abdomen shows cholecystitis. ASSESSMENT AND PLAN: Cholecystitis. The patient has been admitted. We will consult General Surgery, start IV antibiotics. Consult Infectious Disease. Home meds, DVT prophylaxis. Full code. IV fluids, p.r.n. fentanyl, p.r.n. Zofran. BAM PAVON DO DR: EFRAIN/carlin JOB#: [id number] / [id number]
[2020-04-15] MEDS: TEMAZEPAM 15 MG CAPSULE PO PRN (20:39)
[2020-04-15 23:00] VITALS: BP 99/64
[2020-04-16 03:00] VITALS: BP 103/62
[2020-04-16] MEDS: fentaNYL PF VIAL 100 MCG/2 ML VIAL IV PRN ×3 (05:51→12:32)
[2020-04-16 07:00] VITALS: BP 95/56
[2020-04-16] MEDS: IV NORMAL SALINE 1000ML BAG 1,000 ML IV SCH (09:26)
--- NOTE | 2020-04-16 10:00 | PDOC2 ---
CONSULT Date of Consult Date of Consult DATE: 04/16/20 TIME: 09:52 Reason for Consult Reason for Consult: Cholecystitis antibiotic management Referring Physician Referring Physician: Dr. Manzo Identification/Chief Complaint Chief Complaint ABDOMINAL PAIN History of Present Illness Reason for Visit: 34 year old female who presented to the ER on April 15, 2020 with complaints of right upper quadrant abdominal pain sudden in onset started day prior to admi ssion. She had radiation from the right upper and mid abdomen down the lower abdomen, sharp in nature. She denies any history of trauma. She had subjective fevers and chills. She still has her periods. She has undergone uterine ablation in the past. She also had some nausea and vomiting. He denies any previous episodes similar to this one. She denies any hematochezia or melena. Denies any history of abdominal surgeries. She was found to have leukocytosis. CT abdomen and pelvis as below. She recei maris a dose of Zosyn. ID consultation has been requested for antibiotic management. Past Medical History GI: GERD Past Surgical History Past Surgical History None Past Surgical History: Family History Family History: No Significant Social History Social History Smoking EtOH rare UDS positive Works at [employer] in the kitchen ALCOHOL: none Drugs: None Current Problem List Problem List Problems Medical Problems: (1) Cholecystitis Status: Acute Current Medications Current Medications Current Medications Sodium Chloride 1,000 ml @ 1,000 mls/hr 1X ONCE IV Last administered on 04/15/20at 11:24; Start 04/15/20 at 11:15; Stop 04/15/20 at 12:14; Status DC Fentanyl Citrate (Fentanyl 2ml Vial) 50 mcg 1X ONCE IVP Last administered on 04/15/20at 11:23; Start 04/15/20 at 11:15; Stop 04/15/20 at 11:16; Status DC Ondansetron HCl (Zofran) 4 mg 1X ONCE IVP Last administered on 04/15/20at 11:23; Start 04/15/20 at 11:15; Stop 04/15/20 at 11:16; Status DC Ketorolac Tromethamine (Toradol 30mg Vial) 30 mg 1X ONCE IVP Last administered on 04/15/20at 12:54; Start 04/15/20 at 11:15; Stop 04/15/20 at 11:16; Status DC Iohexol (Omnipaque 300 Mg/ml) 75 ml 1X ONCE IV Last administered on 04/15/20at 12:30; Start 04/15/20 at 11:45; Stop 04/15/20 at 11:46; Status DC Info (CONTRAST GIVEN -- Rx MONITORING) 1 each PRN DAILY PRN MC SEE COMMENTS; Start 04/15/20 at 11:45; Stop 04/17/20 at 11:44 Fentanyl Citrate (Fentanyl 2ml Vial) 50 mcg 1X ONCE IVP Last administered on 04/15/20at 14:44; Start 04/15/20 at 14:30; Stop 04/15/20 at 14:31; Status DC Piperacillin Sod/ Tazobactam Sod 3.375 gm/Sodium Chloride 50 ml @ 100 mls/hr 1X ONCE IV Last administered on 04/15/20at 17:21; Start 04/15/20 at 15:00; Stop 04/15/20 at 15:29; Status DC Ondansetron HCl (Zofran) 4 mg PRN Q8HRS PRN IV NAUSEA/VOMITING Last ad ministered on 04/15/20at 20:51; Start 04/15/20 at 16:00; Stop 04/16/20 at 15:59 Fentanyl Citrate (Fentanyl 2ml Vial) 50 mcg PRN Q2HR PRN IV PAIN Last administered on 04/16/20at 09:25; Start 04/15/20 at 16:00; Stop 04/16/20 at 15:59 Sodium Chloride 1,000 ml @ 125 mls/hr Q8H IV Last administered on 04/16/20at 09:26; Start 04/15/20 at 16:00; Stop 04/16/20 at 15:59 Temazepam (Restoril) 15 mg PRN QHS PRN PO INSOMNIA Last administered on 04/15/20at 20:39; Start 04/15/20 at 20:15 Active Scripts Active Reported Progesterone (Progesterone,Micronized) 200 Mg Capsule 1 Cap PO QHS 30 Days Omeprazole 40 Mg Capsule.dr 40 Mg PO HS Allergies Allergies: Coded Allergies: ciprofloxacin (Verified Allergy, Intermediate, 04/16/20) ROS Review of System Negative except for above Physical Exam Physical Exam General alert oriented x3 female in no acute distress lying comfortably in bed HEENT normocephalic atraumatic anicteric no thrush Neck supple no JVD no lymphadenopathy Lungs clear bilaterally no wheezing Heart S1-S2 no gallops or murmurs Abdominal right-sided abdominal pain more in the right upper quadrant, bowel sounds present nondistended bowel sounds present, no rebound or guarding Extremities no edema no cyanosis Derm warm dry no generalized rash multiple tattoos BURRER HAND alert oriented x3 grossly nonfocal Psychiatric cooperative, calm Vitals VITALS Vital Signs Date Time Temp Pulse Resp B/P (MAP) Pulse Ox O2 Delivery O2 Flow Rate FiO2 04/16/20 09:25 Room Air 04/16/20 07:00 97.7 51 14 95/56 (69) 96 97.7 Labs Labs Laboratory Tests Test 04/15/20 10:56 04/15/20 12:07 04/15/20 12:17 White Blood Count 12.9 x10^3/uL (4.0-11.0) Red Blood Count 3.95 x10^6/uL (3.50-5.40) Hemoglobin 12.6 g/dL (12.0-15.5) Hematocrit 37.5 % (36.0-47.0) Mean Corpuscular Volume 95 fL (79-100) Mean Corpuscular Hemoglobin 32 pg (25-35) Mean Corpuscular Hemoglobin Concent 34 g/dL (31-37) Red Cell Distribution Width 13.1 % (11.5-14.5) Platelet Count 236 x10^3/uL (140-400) Neutrophils (%) (Auto) 87 % (31-73) Lymphocytes (%) (Auto) 9 % (24-48) Monocytes (%) (Auto) 4 % (0-9) Eosinophils (%) (Auto) 0 % (0-3) Basophils (%) (Auto) 0 % (0-3) Neutrophils # (Auto) 11.3 x10^3/uL (1.8-7.7) Lymphocytes # (Auto) 1.1 x10^3/uL (1.0-4.8) Monocytes # (Auto) 0.5 x10^3/uL (0.0-1.1) Eosinophils # (Auto) 0.1 x10^3/uL (0.0-0.7) Basophils # (Auto) 0.0 x10^3/uL (0.0-0.2) Segmented Neutrophils % 83 % (35-66) Band Neutrophils % 3 % (0-9) Lymphocytes % 9 % (24-48) Monocytes % 5 % (0-10) Platelet Estimate Adequate (ADEQUATE) Sodium Level 140 mmol/L (136-145) Potassium Level 4.0 mmol/L (3.5-5.1) Chloride Level 107 mmol/L (98-107) Carbon Dioxide Level 23 mmol/L (21-32) Anion Gap 10 (6-14) Blood Urea Nitrogen 21 mg/dL (7-20) Creatinine 0.9 mg/dL (0.6-1.0) Estimated GFR (Cockcroft-Gault) 70.8 BUN/Creatinine Ratio 23 (6-20) Glucose Level 148 mg/dL (70-99) Calcium Level 8.6 mg/dL (8.5-10.1) Total Bilirubin 0.5 mg/dL (0.2-1.0) Aspartate Amino Transf (AST/SGOT) 50 U/L (15-37) Alanine Aminotransferase (ALT/SGPT) 53 U/L (14-59) Alkaline Phosphatase 57 U/L (46-116) Total Protein 6.6 g/dL (6.4-8.2) Albumin 3.6 g/dL (3.4-5.0) Albumin/Globulin Ratio 1.2 (1.0-1.7) Lipase 107 U/L (73-393) Urine Collection Type Unknown Urine Color Yellow Urine Clarity Turbid Urine pH 8.5 (<5.0-8.0) Urine Specific [place] 1.025 (1.000-1.030) Urine Protein Negative mg/dL (NEG-TRACE) Urine Glucose (UA) Negative mg/dL (NEG) Urine Ketones (Stick) Negative mg/dL (NEG) Urine Blood Large (NEG) Urine Nitrite Negative (NEG) Urine Bilirubin Negative (NEG) Urine Urobilinogen Dipstick 1.0 mg/dL (0.2 mg/dL) Urine Leukocyte Esterase Trace (NEG) Urine RBC 0 /HPF (0-2) Urine WBC 1-4 /HPF (0-4) Urine Squamous Epithelial Cells Mod /LPF Urine Amorphous Sediment Present /HPF Urine Bacteria Many /HPF (0-FEW) Urine Opiates Screen Neg (NEG) Urine Methadone Screen Neg (NEG) Urine Barbiturates Neg (NEG) Urine Phencyclidine Screen Neg (NEG) Urine Amphetamine/Methamphetamine Neg (NEG) Urine Benzodiazepines Screen Neg (NEG) Urine Cocaine Screen Pos (NEG) Urine Cannabinoids Screen Pos (NEG) Urine Ethyl Alcohol Neg (NEG) Bedside Urine HCG, Qualitative Hcg negative (Negative) Laboratory Tests Test 04/15/20 10:56 04/15/20 12:07 04/15/20 12:17 White Blood Count 12.9 x10^3/uL (4.0-11.0) Red Blood Count 3.95 x10^6/uL (3.50-5.40) Hemoglobin 12.6 g/dL (12.0-15.5) Hematocrit 37.5 % (36.0-47.0) Mean Corpuscular Volume 95 fL (79-100) Mean Corpuscular Hemoglobin 32 pg (25-35) Mean Corpuscular Hemoglobin Concent 34 g/dL (31-37) Red Cell Distribution Width 13.1 % (11.5-14.5) Platelet Count 236 x10^3/uL (140-400) Neutrophils (%) (Auto) 87 % (31-73) Lymphocytes (%) (Auto) 9 % (24-48) Monocytes (%) (Auto) 4 % (0-9) Eosinophils (%) (Auto) 0 % (0-3) Basophils (%) (Auto) 0 % (0-3) Neutrophils # (Auto) 11.3 x10^3/uL (1.8-7.7) Lymphocytes # (Auto) 1.1 x10^3/uL (1.0-4.8) Monocytes # (Auto) 0.5 x10^3/uL (0.0-1.1) Eosinophils # (Auto) 0.1 x10^3/uL (0.0-0.7) Basophils # (Auto) 0.0 x10^3/uL (0.0-0.2) Segmented Neutrophils % 83 % (35-66) Band Neutrophils % 3 % (0-9) Lymphocytes % 9 % (24-48) Monocytes % 5 % (0-10) Platelet Estimate Adequate (ADEQUATE) Sodium Level 140 mmol/L (136-145) Potassium Level 4.0 mmol/L (3.5-5.1) Chloride Level 107 mmol/L (98-107) Carbon Dioxide Level 23 mmol/L (21-32) Anion Gap 10 (6-14) Blood Urea Nitrogen 21 mg/dL (7-20) Creatinine 0.9 mg/dL (0.6-1.0) Estimated GFR (Cockcroft-Gault) 70.8 BUN/Creatinine Ratio 23 (6-20) Glucose Level 148 mg/dL (70-99) Calcium Level 8.6 mg/dL (8.5-10.1) Total Bilirubin 0.5 mg/dL (0.2-1.0) Aspartate Amino Transf (AST/SGOT) 50 U/L (15-37) Alanine Aminotransferase (ALT/SGPT) 53 U/L (14-59) Alkaline Phosphatase 57 U/L (46-116) Total Protein 6.6 g/dL (6.4-8.2) Albumin 3.6 g/dL (3.4-5.0) Albumin/Globulin Ratio 1.2 (1.0-1.7) Lipase 107 U/L (73-393) Urine Collection Type Unknown Urine Color Yellow Urine Clarity Turbid Urine pH 8.5 (<5.0-8.0) Urine Specific [place] 1.025 (1.000-1.030) Urine Protein Negative mg/dL (NEG-TRACE) Urine Glucose (UA) Negative mg/dL (NEG) Urine Ketones (Stick) Negative mg/dL (NEG) Urine Blood Large (NEG) Urine Nitrite Negative (NEG) Urine Bilirubin Negative (NEG) Urine Urobilinogen Dipstick 1.0 mg/dL (0.2 mg/dL) Urine Leukocyte Esterase Trace (NEG) Urine RBC 0 /HPF (0-2) Urine WBC 1-4 /HPF (0-4) Urine Squamous Epithelial Cells Mod /LPF Urine Amorphous Sediment Present /HPF Urine Bacteria Many /HPF (0-FEW) Urine Opiates Screen Neg (NEG) Urine Methadone Screen Neg (NEG) Urine Barbiturates Neg (NEG) Urine Phencyclidine Screen Neg (NEG) Urine Amphetamine/Methamphetamine Neg (NEG) Urine Benzodiazepines Screen Neg (NEG) Urine Cocaine Screen Pos (NEG) Urine Cannabinoids Screen Pos (NEG) Urine Ethyl Alcohol Neg (NEG) Bedside Urine HCG, Qualitative Hcg negative (Negative) Images Images REASON: gall bladder abnormal on CT PROCEDURE: ABDOMEN LTD Examination: Ultrasound abdomen limited HISTORY: History of abnormal gallbladder COMPARISON: CT same day exam FINDINGS: The liver length measures 16.7 cm. Increased echogenicity identified in the liver likely hepatic steatosis. The gallbladder is mildly distended. There is somewhat thickened appearing gallbladder wall with minimal hypoechogenicity identified in the liver abutting the gallbladder wall could be pericholecystic fluid. The common bile duct measures 6 mm in transverse dimension. The right kidney measures 11.5 x 4.1 cm . The visualized pancreas grossly appears unremarkable. Visualized IVC within normal limits of dimension. IMPRESSION: 1. Mild pericholecystic fluid identified in the perihepatic region. Underlying cholecystitis is not excluded. Recommend HIDA scan. 2. Mild hepatic steatosis. 3. Mild dilated common bile duct. PROCEDURE: ABDOMEN LTD Examination: Ultrasound abdomen limited HISTORY: History of abnormal gallbladder COMPARISON: CT same day exam FINDINGS: The liver length measures 16.7 cm. Increased echogenicity identified in the liver likely hepatic steatosis. The gallbladder is mildly distended. There is somewhat thickened appearing gallbladder wall with minimal hypoechogenicity identified in the liver abutting the gallbladder wall could be pericholecystic fluid. The common bile duct measures 6 mm in transverse dimension. The right kidney measures 11.5 x 4.1 cm . The visualized pancreas grossly appears unremarkable. Visualized IVC within normal limits of dimension. IMPRESSION: 1. Mild pericholecystic fluid identified in the perihepatic region. Underlying cholecystitis is not excluded. Recommend HIDA scan. 2. Mild hepatic steatosis. 3. Mild dilated common bile duct. Assessment/Plan Assessment/Plan Abdominal pain, abnormal abdominal ultrasound with cholecystitis Leukocytosis Tobaccoism History of DVT GERD History of renal calculi UDS positive for cocaine Recommendations Restart Zosyn General surgery consult pending Monitor labs and cultures Continue supportive care D/w nursing staff Thank you for allowing me to participate in this patient's care. If you have any questions do not hesitate to contact me. GERTRUDE BREWER MD Apr 16, 2020 10:00
[2020-04-16 11:00] VITALS: BP 87/44
--- NOTE | 2020-04-16 11:31 | PDOC ---
[employer] PROGRESS NOTE Date of Service DOS: DATE: 04/16/20 TIME: 11:29 Chief Complaint Chief Complaint Acute abdominal pain due to cholecystitis Admit to medicine Surgery consult Serial abdominal exams Consider GI consult if dilated CBD and concern for choledocholithiasis IV Dilaudid as needed N.p.o. Lovenox for DVT prophylaxis, hold 12 hours before surgery Protonix GI prophylaxis Full code Discussed with RN and TERRI Dispo pending surgery evaluation History of Present Illness History of Present Illness 04/16/2020 No acute events overnight. Patient is resting comfortably bedside. Patient seen and examined. On-call to the OR for cholecystectomy. 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 Basically, she has been developing abdominal pain described it as very sharp in the right lower quadrant. She has been having some shooting pains to the mid side of her abdomen. She took some home meds, but that did not seem to help. It is worse with food, better with no food. She decided to have her 18-year-old son drive her into the hospital. She has been evaluated in the ER, where we did some imaging. Ultrasound of the abdomen is confirming cholecystitis. We are going to admit the patient, start IV antibiotics and consult General Surgery. Vitals/I&O Vitals/I&O: Vital Signs Date Time Temp Pulse Resp B/P (MAP) Pulse Ox O2 Delivery O2 Flow Rate FiO2 04/16/20 09:55 Room Air 04/16/20 07:00 97.7 51 14 95/56 (69) 96 97.7 I & O 04/15/20 04/15/20 04/16/20 15:00 23:00 07:00 Intake Total 50 ml 2100 ml Balance 50 ml 2100 ml Labs Labs: Laboratory Tests Test 04/15/20 12:07 04/15/20 12:17 04/15/20 23:40 Urine Collection Type Unknown Urine Color Yellow Urine Clarity Turbid Urine pH 8.5 (<5.0-8.0) Urine Specific [place] 1.025 (1.000-1.030) Urine Protein Negative mg/dL (NEG-TRACE) Urine Glucose (UA) Negative mg/dL (NEG) Urine Ketones (Stick) Negative mg/dL (NEG) Urine Blood Large (NEG) Urine Nitrite Negative (NEG) Urine Bilirubin Negative (NEG) Urine Urobilinogen Dipstick 1.0 mg/dL (0.2 mg/dL) Urine Leukocyte Esterase Trace (NEG) Urine RBC 0 /HPF (0-2) Urine WBC 1-4 /HPF (0-4) Urine Squamous Epithelial Cells Mod /LPF Urine Amorphous Sediment Present /HPF Urine Bacteria Many /HPF (0-FEW) Urine Opiates Screen Neg (NEG) Urine Methadone Screen Neg (NEG) Urine Barbiturates Neg (NEG) Urine Phencyclidine Screen Neg (NEG) Urine Amphetamine/Methamphetamine Neg (NEG) Urine Benzodiazepines Screen Neg (NEG) Urine Cocaine Screen Pos (NEG) Urine Cannabinoids Screen Pos (NEG) Urine Ethyl Alcohol Neg (NEG) Bedside Urine HCG, Qualitative Hcg negative (Negative) SARS-CoV-2 Antigen (Rapid) Negative (NEGATIVE) Assessment and Plan Assessmemt and Plan Problems Medical Problems: (1) Cholecystitis Status: Acute Comment Review of Relevant I have reviewed the following items kailey (where applicable) has been applied. Medications: Current Medications Medications (Trade) Dose Ordered Sig/Mellissa Route PRN Reason Start Time Stop Time Status Last Admin Dose Admin Iohexol (Omnipaque 300 Mg/ml) 75 ml 1X ONCE IV 04/15/20 11:45 04/15/20 11:46 DC 04/15/20 12:30 Fentanyl Citrate (Fentanyl 2ml Vial) 50 mcg 1X ONCE IVP 04/15/20 14:30 04/15/20 14:31 DC 04/15/20 14:44 Piperacillin Sod/ Tazobactam Sod 3.375 gm/Sodium Chloride 50 ml @ 100 mls/hr 1X ONCE IV 04/15/20 15:00 04/15/20 15:29 DC 04/15/20 17:21 Ondansetron HCl (Zofran) 4 mg PRN Q8HRS PRN IV NAUSEA/VOMITING 04/15/20 16:00 04/16/20 15:59 04/15/20 20:51 Fentanyl Citrate (Fentanyl 2ml Vial) 50 mcg PRN Q2HR PRN IV PAIN 04/15/20 16:00 04/16/20 15:59 04/16/20 09:25 Sodium Chloride 1,000 ml @ 125 mls/hr Q8H IV 04/15/20 16:00 04/16/20 15:59 04/16/20 09:26 Temazepam (Restoril) 15 mg PRN QHS PRN PO INSOMNIA 04/15/20 20:15 04/15/20 20:39 Justifications for Admission Other Justification BELTRAN GAO MD Apr 16, 2020 11:31
[2020-04-16] MEDS: PIPERACILLIN/TAZOBACTAM 3.375 GM in IV NORMAL SALINE 50ML 50 ML IV SCH ×2 (12:31→18:15)
--- NOTE | 2020-04-16 12:38 | PDOC2 ---
CONSULT Date of Consult Date of Consult DATE: 04/16/20 TIME: 12:31 History of Present Illness Reason for Visit: The patient is a 34 year old female who reported to the ER due to abdominal pain. The pain started yesterday and was located in the RLQ with some radiation inferiorly. She reported associated vomiting and denies fever. Past Medical History Past Medical History denies GI: GERD Past Surgical History Past Surgical History tubal, Csection, laminectomy, uterine ablation Past Surgical History: Family History Family History: No Significant Social History ALCOHOL: none Drugs: None Current Problem List Problem List Problems Medical Problems: (1) Cholecystitis Status: Acute Current Medications Current Medications Current Medications Sodium Chloride 1,000 ml @ 1,000 mls/hr 1X ONCE IV Last administered on 04/15/20at 11:24; Start 04/15/20 at 11:15; Stop 04/15/20 at 12:14; Status DC Fentanyl Citrate (Fentanyl 2ml Vial) 50 mcg 1X ONCE IVP Last administered on 04/15/20at 11:23; Start 04/15/20 at 11:15; Stop 04/15/20 at 11:16; Status DC Ondansetron HCl (Zofran) 4 mg 1X ONCE IVP Last administered on 04/15/20at 11:23; Start 04/15/20 at 11:15; Stop 04/15/20 at 11:16; Status DC Ketorolac Tromethamine (Toradol 30mg Vial) 30 mg 1X ONCE IVP Last administered on 04/15/20at 12:54; Start 04/15/20 at 11:15; Stop 04/15/20 at 11:16; Status DC Iohexol (Omnipaque 300 Mg/ml) 75 ml 1X ONCE IV Last administered on 04/15/20at 12:30; Start 04/15/20 at 11:45; Stop 04/15/20 at 11:46; Status DC Info (CONTRAST GIVEN -- Rx MONITORING) 1 each PRN DAILY PRN MC SEE COMMENTS; Start 04/15/20 at 11:45; Stop 04/17/20 at 11:44 Fentanyl Citrate (Fentanyl 2ml Vial) 50 mcg 1X ONCE IVP Last administered on 04/15/20at 14:44; Start 04/15/20 at 14:30; Stop 04/15/20 at 14:31; Status DC Piperacillin Sod/ Tazobactam Sod 3.375 gm/Sodium Chloride 50 ml @ 100 mls/hr 1X ONCE IV Last administered on 04/15/20at 17:21; Start 04/15/20 at 15:00; Stop 04/15/20 at 15:29; Status DC Ondansetron HCl (Zofran) 4 mg PRN Q8HRS PRN IV NAUSEA/VOMITING Last administered on 04/15/20at 20:51; Start 04/15/20 at 16:00; Stop 04/16/20 at 15:59 Fentanyl Citrate (Fentanyl 2ml Vial) 50 mcg PRN Q2HR PRN IV PAIN Last administered on 04/16/20at 09:25; Start 04/15/20 at 16:00; Stop 04/16/20 at 15:59 Sodium Chloride 1,000 ml @ 125 mls/hr Q8H IV Last administered on 04/16/20at 09:26; Start 04/15/20 at 16:00; Stop 04/16/20 at 15:59 Temazepam (Restoril) 15 mg PRN QHS PRN PO INSOMNIA Last administered on 04/15/20at 20:39; Start 04/15/20 at 20:15 Piperacillin Sod/ Tazobactam Sod 3.375 gm/Sodium Chloride 50 ml @ 100 mls/hr Q6HRS IV ; Start 04/16/20 at 12:00 Active Scripts Active Reported Progesterone (Progesterone,Micronized) 200 Mg Capsule 1 Cap PO QHS 30 Days Omeprazole 40 Mg Capsule.dr 40 Mg PO HS Allergies Allergies: Coded Allergies: ciprofloxacin (Verified Allergy, Intermediate, 04/16/20) ROS General: No: Chills, Night Sweats, Fatigue, Malaise, Appetite, Other PSYCHOLOGICAL ROS: No: Anxiety, Behavioral Disorder, Concentration difficultie, Decreased libido, Depression, Disorientation, Hallucinations, Hostility, Irritablity, Memory difficulties, Mood Swings, Obsessive thoughts, Physical abuse, Sexual abuse, Sleep disturbances, Suicidal ideation, Other Eyes: No Blurry vision, No Decreased vision, No Double vision, No Dry eyes, No Excessive tearing, No Eye Pain, No Itchy Eyes, No Loss of vision, No Photophobia, No Scotomata, No Uses contacts, No Uses glasses, No Other HEENT: No: Heacaches, Visual Changes, Hearing change, Nasal congestion, Nasal discharge, Oral lesions, Sinus pain, Sore Throat, Epistaxis, Sneezing, Snoring, Tinnitus, Vertigo, Vocal changes, Other ALLERGY AND IMMUNOLOGY: No: Hives, Insect Bite Sensitivity, Itchy/Watery Eyes, Nasal Congestion, Post Nasal Drip, Seasonal Allergies, Other Hematological and Lymphatic: No: Bleeding Problems, Blood Clots, Blood Transfusions, Brusing, Night Sweats, Pallor, Swollen Lymph Nodes, Other ENDOCRINE: No: Breast Changes, Galactorrhea, Hair Pattern Changes, Hot Flashes, Malaise/lethargy, Mood Swings, Palpitations, Polydipsia/polyuria, Skin Changes, Temperature Intolerance, Unexpected Weight Changes, Other Breast: No New/Changing Breast Lumps, No Nipple changes, No Nipple discharge, No Other Respiratory: No: Cough, Hemoptysis, Orthopnea, Pleuritic Pain, Shortness of breath, SOB with excertion, Sputum Changes, Stridor, Tachypnea, Wheezing, Other Cardiovascular: No Chest Pain, No Palpitations, No Orthopnea, No Paroxysmal Noc. Dyspnea, No Edema, No Lt Headedness, No Other Gastrointestinal: Yes Vomiting, Yes Abdominal Pain Genitourinary: No Dysuria, No Frequency, No Incontinence, No Hematuria, No Retention, No Discharge, No Urgency, No Pain, No Flank Pain, No Other, No , No , No , No , No , No , No Musculoskeletal: No Gait Disturbance, No Joint Pain, No Joint Stiffness, No Joint Swelling, No Muscle Pain, No Muscular Weakness, No Pain In:, No Swelling In:, No Other Neurological: No Behavorial Changes, No Bowel/Bladder ControlChng, No Confusion, No Dizziness, No Gait Disturbance, No Headaches, No Impaired Coord/balance, No Memory Loss, No Numbness/Tingling, No Seizures, No Speech Pr oblems, No Tremors, No Visual Changes, No Weakness, No Other Skin: No Dry Skin, No Eczema, No Hair Changes, No Lumps, No Mole Changes, No Mottling, No Nail Changes, No Pruritus, No Rash, No Skin Lesion Changes, No Other, No Acne Physical Exam General: Alert, Cooperative HEENT: Atraumatic Lungs: Clear to auscultation Abdomen: Soft (pain in RLQ) Skin: No rashes Neuro: Normal speech Psych/Mental Status: Mental status NL Vitals VITALS Vital Signs Date Time Temp Pulse Resp B/P (MAP) Pulse Ox O2 Delivery O2 Flow Rate FiO2 04/16/20 11:00 97.9 61 12 87/44 (58) 97 Room Air 97.9 Labs Labs Laboratory Tests Test 04/15/20 10:56 04/15/20 12:07 04/15/20 12:17 04/15/20 23:40 White Blood Count 12.9 x10^3/uL (4.0-11.0) Red Blood Count 3.95 x10^6/uL (3.50-5.40) Hemoglobin 12.6 g/dL (12.0-15.5) Hematocrit 37.5 % (36.0-47.0) Mean Corpuscular Volume 95 fL (79-100) Mean Corpuscular Hemoglobin 32 pg (25-35) Mean Corpuscular Hemoglobin Concent 34 g/dL (31-37) Red Cell Distribution Width 13.1 % (11.5-14.5) Platelet Count 236 x10^3/uL (140-400) Neutrophils (%) (Auto) 87 % (31-73) Lymphocytes (%) (Auto) 9 % (24-48) Monocytes (%) (Auto) 4 % (0-9) Eosinophils (%) (Auto) 0 % (0-3) Basophils (%) (Auto) 0 % (0-3) Neutrophils # (Auto) 11.3 x10^3/uL (1.8-7.7) Lymphocytes # (Auto) 1.1 x10^3/uL (1.0-4.8) Monocytes # (Auto) 0.5 x10^3/uL (0.0-1.1) Eosinophils # (Auto) 0.1 x10^3/uL (0.0-0.7) Basophils # (Auto) 0.0 x10^3/uL (0.0-0.2) Segmented Neutrophils % 83 % (35-66) Band Neutrophils % 3 % (0-9) Lymphocytes % 9 % (24-48) Monocytes % 5 % (0-10) Platelet Estimate Adequate (ADEQUATE) Sodium Level 140 mmol/L (136-145) Potassium Level 4.0 mmol/L (3.5-5.1) Chloride Level 107 mmol/L (98-107) Carbon Dioxide Level 23 mmol/L (21-32) Anion Gap 10 (6-14) Blood Urea Nitrogen 21 mg/dL (7-20) Creatinine 0.9 mg/dL (0.6-1.0) Estimated GFR (Cockcroft-Gault) 70.8 BUN/Creatinine Ratio 23 (6-20) Glucose Level 148 mg/dL (70-99) Calcium Level 8.6 mg/dL (8.5-10.1) Total Bilirubin 0.5 mg/dL (0.2-1.0) Aspartate Amino Transf (AST/SGOT) 50 U/L (15-37) Alanine Aminotransferase (ALT/SGPT) 53 U/L (14-59) Alkaline Phosphatase 57 U/L (46-116) Total Protein 6.6 g/dL (6.4-8.2) Albumin 3.6 g/dL (3.4-5.0) Albumin/Globulin Ratio 1.2 (1.0-1.7) Lipase 107 U/L (73-393) Urine Collection Type Unknown Urine Color Yellow Urine Clarity Turbid Urine pH 8.5 (<5.0-8.0) Urine Specific [place] 1.025 (1.000-1.030) Urine Protein Negative mg/dL (NEG-TRACE) Urine Glucose (UA) Negative mg/dL (NEG) Urine Ketones (Stick) Negative mg/dL (NEG) Urine Blood Large (NEG) Urine Nitrite Negative (NEG) Urine Bilirubin Negative (NEG) Urine Urobilinogen Dipstick 1.0 mg/dL (0.2 mg/dL) Urine Leukocyte Esterase Trace (NEG) Urine RBC 0 /HPF (0-2) Urine WBC 1-4 /HPF (0-4) Urine Squamous Epithelial Cells Mod /LPF Urine Amorphous Sediment Present /HPF Urine Bacteria Many /HPF (0-FEW) Urine Opiates Screen Neg (NEG) Urine Methadone Screen Neg (NEG) Urine Barbiturates Neg (NEG) Urine Phencyclidine Screen Neg (NEG) Urine Amphetamine/Methamphetamine Neg (NEG) Urine Benzodiazepines Screen Neg (NEG) Urine Cocaine Screen Pos (NEG) Urine Cannabinoids Screen Pos (NEG) Urine Ethyl Alcohol Neg (NEG) Bedside Urine HCG, Qualitative Hcg negative (Negative) SARS-CoV-2 Antigen (Rapid) Negative (NEGATIVE) Laboratory Tests Test 04/15/20 23:40 SARS-CoV-2 Antigen (Rapid) Negative (NEGATIVE) Images Images Ultrasound: FINDINGS: The liver length measures 16.7 cm. Increased echogenicity identified in the liver likely hepatic steatosis. The gallbladder is mildly distended. There is somewhat thickened appearing gallbladder wall with minimal hypoechogenicity id entified in the liver abutting the gallbladder wall could be pericholecystic fluid. The common bile duct measures 6 mm in transverse dimension. The right kidney measures 11.5 x 4.1 cm . The visualized pancreas grossly appears unremarkable. Visualized IVC within normal limits of dimension. IMPRESSION: 1. Mild pericholecystic fluid identified in the perihepatic region. Underlying cholecystitis is not excluded. Recommend HIDA scan. 2. Mild hepatic steatosis. 3. Mild dilated common bile duct. Assessment/Plan Assessment/Plan RLQ pain, initial CT scan raised concern for cholecystitis; however she has no pain in RUQ, and exam not typical for acute cholecystitis; Ultrasound shows equivocal findings and no gallstones; recommended HIDA scan which I believe is indicated. Plan for HIDA scan, if abnormal will plan lap shirley. If normal then would doubt diagnosis of cholecystitis. SREE IRAHETA MD Apr 16, 2020 12:37
[2020-04-16] MEDS ORDERED: SINCALIDE 1.6 MCG in IV NORMAL SALINE 50ML 30 ML IV ONE (14:00)
[2020-04-16 15:00] VITALS: BP 97/58
--- NOTE | 2020-04-16 15:19 | RAD ---
Nuclear medicine hepatobiliary scan. INDICATION: Right upper quadrant abdominal pain, nausea and vomiting for one day. COMPARISON: Right upper quadrant abdominal ultrasound of 04/15/2020 and abdomen and pelvis CT with IV contrast of 04/15/2020. TECHNIQUE: Following IV administration of 5.3 mCi technetium labeled mebrofenin radiopharmaceutical, anterior imaging of the hepatobiliary tract was performed over one hour and 5 minute increments. Afte r confirmation of activity in the bowel, 1.6 mcg of cholecystokinin was administered IV over 30 minut es with continuous imaging performed. FINDINGS: There is normal hepatic uptake and prompt excretion into the hepatobiliary tree with bowel activity s een within 20 minutes. Gallbladder activity is observed at 45 minutes and following infusion of CCK, gradual decrease in gal lbladder activity is identified with increase in the extrahepatic bile ducts. No evidence of anterobi liary reflux is identified. IMPRESSION: Normal HIDA scan with normal gallbladder contractility. Electronically signed by: Tara May MD (04/16/2020 3:16 PM) [facility] [place]
[2020-04-16] MEDS: ONDANSETRON PF 4 MG/2 ML VIAL. IVP PRN (18:14)
[2020-04-16] MEDS: fentaNYL PF VIAL 100 MCG/2 ML VIAL IVP PRN ×2 (18:15→21:47)
[2020-04-16 19:00] VITALS: BP 107/68
[2020-04-16 23:16] VITALS: BP 109/61
[2020-04-17] MEDS: PIPERACILLIN/TAZOBACTAM 3.375 GM in IV NORMAL SALINE 50ML 50 ML IV SCH ×4 (00:14→18:07)
[2020-04-17 03:04] VITALS: BP 87/51
[2020-04-17 07:00] VITALS: BP 111/62
[2020-04-17] MEDS: fentaNYL PF VIAL 100 MCG/2 ML VIAL IVP PRN ×4 (07:18→20:34)
--- NOTE | 2020-04-17 09:14 | PDOC ---
Infectious Disease Note Subjective: Subjective pt feels better though still has pain on the right side of the abdomen No nausea or vomiting No fevers Tolerating liquids well Vital Signs: Vital Signs Vital Signs Date Time Temp Pulse Resp B/P (MAP) Pulse Ox O2 Delivery O2 Flow Rate FiO2 04/17/20 07:18 95 Room Air 04/17/20 07:00 98.2 74 20 111/62 (78) 98.2 Physical Exam: PHYSICAL EXAM General alert oriented x3 female in no acute distress lying comfortably in bed HEENT normocephalic atraumatic anicteric no thrush Neck supple no JVD no lymphadenopathy Lungs clear bilaterally no wheezing Heart S1-S2 no gallops or murmurs Abdominal right-sided abdominal pain more in the right upper quadrant, bowel sounds present nondistended bowel sounds present, no rebound or guarding Extremities no edema no cyanosis Derm warm dry no generalized rash multiple 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 nonfocal Psychiatric cooperative, calm Medications: Inpatient Meds: Current Medications Medications (Trade) Dose Ordered Sig/Mellissa Start Time Stop Time Status Last Admin Dose Admin Fentanyl Citrate (Fentanyl 2ml Vial) 50 mcg PRN Q2HR PRN 04/16/20 18:00 04/17/20 07:18 50 MCG Info (CONTRAST GIVEN -- Rx MONITORING) 1 each PRN DAILY PRN 04/15/20 11:45 04/17/20 11:44 Iohexol (Omnipaque 300 Mg/ml) 75 ml 1X ONCE 04/15/20 11:45 04/15/20 11:46 DC 04/15/20 12:30 75 ML Ketorolac Tromethamine (Toradol 30mg Vial) 30 mg 1X ONCE 04/15/20 11:15 04/15/20 11:16 DC 04/15/20 12:54 30 MG Ondansetron HCl (Zofran) 4 mg PRN Q6HRS PRN 04/16/20 18:00 04/16/20 18:14 4 MG Piperacillin Sod/ Tazobactam Sod 3.375 gm/Sodium Chloride 50 ml @ 100 mls/hr Q6HRS 04/16/20 12:00 04/17/20 06:06 100 MLS/HR Sincalide 1.6 mcg/ Sodium Chloride 30 ml @ 120 mls/hr 1X ONCE 04/16/20 14:00 04/16/20 14:14 DC 04/16/20 14:51 120 MLS/HR Sodium Chloride 1,000 ml @ 125 mls/hr Q8H 04/15/20 16:00 04/16/20 15:59 DC 04/16/20 09:26 125 MLS/HR Temazepam (Restoril) 15 mg PRN QHS PRN 04/15/20 20:15 04/15/20 20:39 15 MG Labs: Micro Reviewed Objective: Assessment: Abdominal pain, abnormal abdominal ultrasound with cholecystitis; HIDA scan negative Leukocytosis resolved Tobaccoism GERD UDS positive for cocaine Plan: Plan of Care Continue Zosyn General surgery following Monitor labs and cultures Continue supportive care GERTRUDE BREWER MD Apr 17, 2020 09:14
--- NOTE | 2020-04-17 09:30 | PDOC ---
[employer] PROGRESS NOTE Date of Service DOS: DATE: 04/17/20 TIME: 09:27 Chief Complaint Chief Complaint Acute abdominal pain cholecystitis ruled out, possible biliary colic Pending H. pylori antigen test History of gastric ulcers Admit to medicine Surgery consult Serial abdominal exams Consider GI consult if dilated CBD and concern for choledocholithiasis IV Dilaudid as needed N.p.o. Lovenox for DVT prophylaxis, hold 12 hours before surgery Protonix GI prophylaxis Full code Discussed with RN and SW Dispo pending surgery evaluation History of Present Illness History of Present Illness 04/17/2020 No acute events overnight. HIDA scan was negative. Will advance diet as tolerated if abdominal pain is tolerable. And observe today. Pending H. pylori antigen and antibody test. Patient's chart, labs, images were reviewed and discussed with RN 04/16/2020 No acute events overnight. Patient is resting comfortably bedside. Patient seen and examined. 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 Basically, she has been developing abdominal pain described it as very sharp in the right lower quadrant. She has been having some shooting pains to the mid side of her abdomen. She took some home meds, but that did not seem to help. It is worse with food, better with no food. She decided to have her 18-year-old son drive her into the hospital. She has been evaluated in the ER, where we did some imaging. Ultrasound of the abdomen is confirming cholecystitis. We are going to admit the patient, start IV antibiotics and consult General Surgery. Vitals/I&O Vitals/I&O: Vital Signs Date Time Temp Pulse Resp B/P (MAP) Pulse Ox O2 Delivery O2 Flow Rate FiO2 04/17/20 07:18 95 Room Air 04/17/20 07:00 98.2 74 20 111/62 (78) 98.2 I & O 04/16/20 04/16/20 04/17/20 15:00 23:00 07:00 Intake Total 650 ml Balance 650 ml Physical Exam Physical Exam: General alert oriented x3 female in no acute distress lying comfortably in bed HEENT normocephalic atraumatic anicteric no thrush Neck supple no JVD no lymphadenopathy Lungs clear bilaterally no wheezing Heart S1-S2 no gallops or murmurs Abdominal right-sided abdominal pain more in the right upper quadrant, bowel sounds present nondistended bowel sounds present, no rebound or guarding Extremities no edema no cyanosis Derm warm dry no generalized rash 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 Medications: Current Medications Medications (Trade) Dose Ordered Sig/Mellissa Route PRN Reason Start Time Stop Time Status Last Admin Dose Admin Piperacillin Sod/ Tazobactam Sod 3.375 gm/Sodium Chloride 50 ml @ 100 mls/hr Q6HRS IV 04/16/20 12:00 04/17/20 06:06 Sincalide 1.6 mcg/ Sodium Chloride 30 ml @ 120 mls/hr 1X ONCE IV 04/16/20 14:00 04/16/20 14:14 DC 04/16/20 14:51 Fentanyl Citrate (Fentanyl 2ml Vial) 50 mcg PRN Q2HR PRN IVP PAIN 04/16/20 18:00 04/17/20 07:18 Ondansetron HCl (Zofran) 4 mg PRN Q6HRS PRN IVP NAUSEA/VOMITING 04/16/20 18:00 04/16/20 18:14 Justifications for Admission Other Justification BELTRAN GAO MD Apr 17, 2020 09:30
--- NOTE | 2020-04-17 10:42 | PDOC ---
PROGRESS NOTES Date of Service DATE: 04/17/20 TIME: 10:39 Subjective Subjective reports having some R abdominal pain after taking liquids, no nausea Objective Objective Vital Signs Date Time Temp Pulse Resp B/P (MAP) Pulse Ox O2 Delivery O2 Flow Rate FiO2 04/17/20 07:18 95 Room Air 04/17/20 07:00 98.2 74 20 111/62 (78) 98.2 Intake and Output 04/17/20 07:00 Intake Total 650 ml Balance 650 ml Intake Oral 650 ml # Voids 4 Physical Exam Abdomen: Soft (currently nontender with palpation) Heart: Regular rate, Normal S2 Extremities: No cyanosis General: Alert, Oriented X3 Lungs: Clear to auscultation Neuro: Normal speech Assessment Assessment Problems Medical Problems: (1) Cholecystitis Status: Acute Plan Plan of Care R abdominal pain, testing and presentation equivocal; CT suggestive of cholecystitis, however no gallstones on sono, and no cholecystitis with HIDA scan. Symptoms persist today. I discussed options which include lap shirley. I explained that her presentation is equivocal and there may be benefit with surgery however there is no guarantee. She understands and would like to proceed. Comment Review of Relevant I have reviewed the following items kailey (where applicable) has been applied. Labs Laboratory Tests Test 04/15/20 10:56 04/15/20 12:07 04/15/20 12:17 04/15/20 23:40 White Blood Count 12.9 x10^3/uL (4.0-11.0) Red Blood Count 3.95 x10^6/uL (3.50-5.40) Hemoglobin 12.6 g/dL (12.0-15.5) Hematocrit 37.5 % (36.0-47.0) Mean Corpuscular Volume 95 fL (79-100) Mean Corpuscular Hemoglobin 32 pg (25-35) Mean Corpuscular Hemoglobin Concent 34 g/dL (31-37) Red Cell Distribution Width 13.1 % (11.5-14.5) Platelet Count 236 x10^3/uL (140-400) Neutrophils (%) (Auto) 87 % (31-73) Lymphocytes (%) (Auto) 9 % (24-48) Monocytes (%) (Auto) 4 % (0-9) Eosinophils (%) (Auto) 0 % (0-3) Basophils (%) (Auto) 0 % (0-3) Neutrophils # (Auto) 11.3 x10^3/uL (1.8-7.7) Lymphocytes # (Auto) 1.1 x10^3/uL (1.0-4.8) Monocytes # (Auto) 0.5 x10^3/uL (0.0-1.1) Eosinophils # (Auto) 0.1 x10^3/uL (0.0-0.7) Basophils # (Auto) 0.0 x10^3/uL (0.0-0.2) Segmented Neutrophils % 83 % (35-66) Band Neutrophils % 3 % (0-9) Lymphocytes % 9 % (24-48) Monocytes % 5 % (0-10) Platelet Estimate Adequate (ADEQUATE) Sodium Level 140 mmol/L (136-145) Potassium Level 4.0 mmol/L (3.5-5.1) Chloride Level 107 mmol/L (98-107) Carbon Dioxide Level 23 mmol/L (21-32) Anion Gap 10 (6-14) Blood Urea Nitrogen 21 mg/dL (7-20) Creatinine 0.9 mg/dL (0.6-1.0) Estimated GFR (Cockcroft-Gault) 70.8 BUN/Creatinine Ratio 23 (6-20) Glucose Level 148 mg/dL (70-99) Calcium Level 8.6 mg/dL (8.5-10.1) Total Bilirubin 0.5 mg/dL (0.2-1.0) Aspartate Amino Transf (AST/SGOT) 50 U/L (15-37) Alanine Aminotransferase (ALT/SGPT) 53 U/L (14-59) Alkaline Phosphatase 57 U/L (46-116) Total Protein 6.6 g/dL (6.4-8.2) Albumin 3.6 g/dL (3.4-5.0) Albumin/Globulin Ratio 1.2 (1.0-1.7) Lipase 107 U/L (73-393) Urine Collection Type Unknown Urine Color Yellow Urine Clarity Turbid Urine pH 8.5 (<5.0-8.0) Urine Specific [place] 1.025 (1.000-1.030) Urine Protein Negative mg/dL (NEG-TRACE) Urine Glucose (UA) Negative mg/dL (NEG) Urine Ketones (Stick) Negative mg/dL (NEG) Urine Blood Large (NEG) Urine Nitrite Negative (NEG) Urine Bilirubin Negative (NEG) Urine Urobilinogen Dipstick 1.0 mg/dL (0.2 mg/dL) Urine Leukocyte Esterase Trace (NEG) Urine RBC 0 /HPF (0-2) Urine WBC 1-4 /HPF (0-4) Urine Squamous Epithelial Cells Mod /LPF Urine Amorphous Sediment Present /HPF Urine Bacteria Many /HPF (0-FEW) Urine Opiates Screen Neg (NEG) Urine Methadone Screen Neg (NEG) Urine Barbiturates Neg (NEG) Urine Phencyclidine Screen Neg (NEG) Urine Amphetamine/Methamphetamine Neg (NEG) Urine Benzodiazepines Screen Neg (NEG) Urine Cocaine Screen Pos (NEG) Urine Cannabinoids Screen Pos (NEG) Urine Ethyl Alcohol Neg (NEG) Bedside Urine HCG, Qualitative Hcg negative (Negative) SARS-CoV-2 Antigen (Rapid) Negative (NEGATIVE) Microbiology 04/15/20 Urine Culture - Final, Complete Medications Current Medications Sodium Chloride 1,000 ml @ 1,000 mls/hr 1X ONCE IV Last administered on 04/15/20at 11:24; Start 04/15/20 at 11:15; Stop 04/15/20 at 12:14; Status DC Fentanyl Citrate (Fentanyl 2ml Vial) 50 mcg 1X ONCE IVP Last administered on 04/15/20at 11:23; Start 04/15/20 at 11:15; Stop 04/15/20 at 11:16; Status DC Ondansetron HCl (Zofran) 4 mg 1X ONCE IVP Last administered on 04/15/20at 11:23; Start 04/15/20 at 11:15; Stop 04/15/20 at 11:16; Status DC Ketorolac Tromethamine (Toradol 30mg Vial) 30 mg 1X ONCE IVP Last administered on 04/15/20at 12:54; Start 04/15/20 at 11:15; Stop 04/15/20 at 11:16; Status DC Iohexol (Omnipaque 300 Mg/ml) 75 ml 1X ONCE IV Last administered on 04/15/20at 12:30; Start 04/15/20 at 11:45; Stop 04/15/20 at 11:46; Status DC Info (CONTRAST GIVEN -- Rx MONITORING) 1 each PRN DAILY PRN MC SEE COMMENTS; Start 04/15/20 at 11:45; Stop 04/17/20 at 11:44 Fentanyl Citrate (Fentanyl 2ml Vial) 50 mcg 1X ONCE IVP Last administered on 04/15/20at 14:44; Start 04/15/20 at 14:30; Stop 04/15/20 at 14:31; Status DC Piperacillin Sod/ Tazobactam Sod 3.375 gm/Sodium Chloride 50 ml @ 100 mls/hr 1X ONCE IV Last administered on 04/15/20at 17:21; Start 04/15/20 at 15:00; Stop 04/15/20 at 15:29; Status DC Ondansetron HCl (Zofran) 4 mg PRN Q8HRS PRN IV NAUSEA/VOMITING Last administered on 04/15/20at 20:51; Start 04/15/20 at 16:00; Stop 04/16/20 at 15:59; Status DC Fentanyl Citrate (Fentanyl 2ml Vial) 50 mcg PRN Q2HR PRN IV PAIN Last administered on 04/16/20at 12:32; Start 04/15/20 at 16:00; Stop 04/16/20 at 15:59; Status DC Sodium Chloride 1,000 ml @ 125 mls/hr Q8H IV Last administered on 04/16/20at 09:26; Start 04/15/20 at 16:00; Stop 04/16/20 at 15:59; Status DC Temazepam (Restoril) 15 mg PRN QHS PRN PO INSOMNIA Last administered on 04/15/20at 20:39; Start 04/15/20 at 20:15 Piperacillin Sod/ Tazobactam Sod 3.375 gm/Sodium Chloride 50 ml @ 100 mls/hr Q6HRS IV Last administered on 04/17/20at 06:06; Start 04/16/20 at 12:00 Sincalide 1.6 mcg/ Sodium Chloride 30 ml @ 120 mls/hr 1X ONCE IV Last administered on 04/16/20at 14:51; Start 04/16/20 at 14:00; Stop 04/16/20 at 14:14; Status DC Fentanyl Citrate (Fentanyl 2ml Vial) 50 mcg PRN Q2HR PRN IVP PAIN Last administered on 04/17/20at 07:18; Start 04/16/20 at 18:00 Ondansetron HCl (Zofran) 4 mg PRN Q6HRS PRN IVP NAUSEA/VOMITING Last administered on 04/16/20at 18:14; Start 04/16/20 at 18:00 Active Scripts Active Reported Progesterone (Progesterone,Micronized) 200 Mg Capsule 1 Cap PO QHS 30 Days Omeprazole 40 Mg Capsule.dr 40 Mg PO HS Vitals/I & O Vital Sign - Last 24 Hours 04/16/20 04/16/20 04/16/20 04/16/20 11:00 12:32 15:00 18:15 Temp 97.9 98.0 97.9 98.0 Pulse 61 64 Resp 12 14 B/P (MAP) 87/44 (58) 97/58 (71) Pulse Ox 97 98 O2 Delivery Room Air Room Air Room Air Room Air 04/16/20 04/16/20 04/16/20 04/16/20 18:45 19:00 20:05 21:47 Temp 98.0 98.0 Pulse 50 Resp 15 20 B/P (MAP) 107/68 (81) Pulse Ox 99 O2 Delivery Room Air Room Air Room Air Room Air 04/16/20 04/16/20 04/17/20 04/17/20 22:17 23:16 03:04 07:00 Temp 98.1 97.9 98.2 98.1 97.9 98.2 Pulse 51 55 74 Resp 20 16 17 20 B/P (MAP) 109/61 (77) 87/51 (63) 111/62 (78) Pulse Ox 96 95 97 O2 Delivery Room Air Room Air Room Air Room Air 04/17/20 07:18 Pulse Ox 95 O2 Delivery Room Air Intake and Output 04/16/20 04/16/20 04/17/20 15:00 23:00 07:00 Intake Total 650 ml Balance 650 ml Justifications for Admission Other Justification SREE IRAHETA MD Apr 17, 2020 10:42
[2020-04-17 12:01] LABS: BASO # 0.1 x10^3/uL (0.0-0.2); BASO % 1 % (0-3); EOS # 0.1 x10^3/uL (0.0-0.7); EOS % 1 % (0-3); HEMATOCRIT 37.8 % (36.0-47.0); HEMOGLOBIN 12.9 g/dL (12.0-15.5); LYMPH # 2.7 x10^3/uL (1.0-4.8); LYMPH % 25 % (24-48); MEAN CORPUSCULAR HEMOGLOBIN 33 pg (25-35); MEAN CORPUSCULAR HGB CONC 34 g/dL (31-37); MEAN CORPUSCULAR VOLUME 95 fL (79-100); MONO # 0.5 x10^3/uL (0.0-1.1); MONO % 5 % (0-9); NEUT # 7.2 x10^3/uL (1.8-7.7); NEUT % 68 % (31-73); PLATELET COUNT 249 x10^3/uL (140-400); RED BLOOD COUNT 3.97 x10^6/uL (3.50-5.40); RED CELL DISTRIBUTION WIDTH 13.1 % (11.5-14.5); WHITE BLOOD COUNT 10.5 x10^3/uL (4.0-11.0)
[2020-04-17] MEDS: ONDANSETRON PF 4 MG/2 ML VIAL. IVP PRN ×2 (13:02→18:08)
[2020-04-17 15:00] VITALS: BP 101/58
[2020-04-17 19:00] VITALS: BP 101/56
[2020-04-17] MEDS: TEMAZEPAM 15 MG CAPSULE PO PRN (20:38)
[2020-04-17 23:00] VITALS: BP 99/53
[2020-04-18] VITALS (13 sets, daily range): BP systolic 97–142; BP diastolic 62–78
[2020-04-18] MEDS: PIPERACILLIN/TAZOBACTAM 3.375 GM in IV NORMAL SALINE 50ML 50 ML IV SCH ×5 (00:12→23:35)
[2020-04-18] MEDS: fentaNYL PF VIAL 100 MCG/2 ML VIAL IVP PRN ×6 (05:17→23:35)
--- NOTE | 2020-04-18 07:47 | PDOC ---
[facility] PROGRESS NOTE Date of Service DOS: DATE: 04/18/20 TIME: 07:44 Chief Complaint Chief Complaint Acute abdominal pain cholecystitis ruled out, possible biliary colic Pending H. pylori antigen test History of gastric ulcers Leukocytosis Tobaccoism History of DVT GERD History of renal calculi UDS positive for cocaine Admit to medicine Surgery consult Serial abdominal exams Consider GI consult if dilated CBD and concern for choledocholithiasis IV Dilaudid as needed N.p.o. 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 She took some home meds, but that did not seem to help. It is worse with food, better with no food. She decided to have her 18-year-old son drive her into the hospital. Ultrasound of the abdomen suspicious for cholecystitis and admitted for IV pain control, antibiotics and consult General Surgery. 04/16: No acute events overnight. Patient is resting comfortably bedside. Patient seen and examined. Patient's chart, labs, images were reviewed and discussed with RN 04/17: No acute events overnight. HIDA scan was negative. Diet advanced, but pain returned. Patient d/w surgery risks vs benefits of surgery and she elected to proceed No acute overnight events. Patient in the shower. She is having abdominal pain. plans for surgery today. Vitals/I&O Vitals/I&O: Vital Signs Date Time Temp Pulse Resp B/P (MAP) Pulse Ox O2 Delivery O2 Flow Rate FiO2 04/18/20 05:47 20 Room Air 04/18/20 03:00 97.3 60 102/66 (78) 95 97.3 I & O 04/17/20 04/17/20 04/18/20 15:00 23:00 07:00 Intake Total 200 ml Output Total 0 ml Balance 200 ml 0 ml Physical Exam Physical Exam: General alert oriented x3 female in no acute distress lying comfortably in bed HEENT normocephalic atraumatic anicteric no thrush Neck supple no JVD no lymphadenopathy Lungs clear bilaterally no wheezing Heart S1-S2 no gallops or murmurs Abdominal right-sided abdominal pain more in the right upper quadrant, bowel sounds present nondistended bowel sounds present, no rebound or guarding Extremities no edema no cyanosis Derm warm dry no generalized rash 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 nonfocal Psychiatric cooperative, calm General: Alert, Oriented X3 Heart: Regular rate, Normal S2 Abdomen: Soft (currently nontender with palpation) Extremities: No cyanosis Skin: No rashes Labs Labs: Laboratory Tests Test 04/17/20 11:05 White Blood Count 10.5 x10^3/uL (4.0-11.0) Red Blood Count 3.97 x10^6/uL (3.50-5.40) Hemoglobin 12.9 g/dL (12.0-15.5) Hematocrit 37.8 % (36.0-47.0) Mean Corpuscular Volume 95 fL (79-100) Mean Corpuscular Hemoglobin 33 pg (25-35) Mean Corpuscular Hemoglobin Concent 34 g/dL (31-37) Red Cell Distribution Width 13.1 % (11.5-14.5) Platelet Count 249 x10^3/uL (140-400) Neutrophils (%) (Auto) 68 % (31-73) Lymphocytes (%) (Auto) 25 % (24-48) Monocytes (%) (Auto) 5 % (0-9) Eosinophils (%) (Auto) 1 % (0-3) Basophils (%) (Auto) 1 % (0-3) Neutrophils # (Auto) 7.2 x10^3/uL (1.8-7.7) Lymphocytes # (Auto) 2.7 x10^3/uL (1.0-4.8) Monocytes # (Auto) 0.5 x10^3/uL (0.0-1.1) Eosinophils # (Auto) 0.1 x10^3/uL (0.0-0.7) Basophils # (Auto) 0.1 x10^3/uL (0.0-0.2) Assessment and Plan Assessmemt and Plan Problems Medical Problems: (1) Cholecystitis Status: Acute Comment Review of Relevant I have reviewed the following items kailey (where applicable) has been applied. Justifications for Admission Other Justification ARY CHUNG MD Apr 18, 2020 07:47
--- NOTE | 2020-04-18 08:13 | PDOC ---
Infectious Disease Note Subjective: Subjective pt feels better though still has pain on the right side of the abdomen with meals No nausea or vomiting No fevers Awaiting laparoscopic cholecystectomy today Vital Signs: Vital Signs Vital Signs Date Time Temp Pulse Resp B/P (MAP) Pulse Ox O2 Delivery O2 Flow Rate FiO2 04/18/20 05:47 20 Room Air 04/18/20 03:00 97.3 60 102/66 (78) 95 97.3 Physical Exam: PHYSICAL EXAM General alert oriented x3 female in no acute distress lying comfortably in bed HEENT normocephalic atraumatic anicteric no thrush Neck supple no JVD no lymphadenopathy Lungs clear bilaterally no wheezing Heart S1-S2 no gallops or murmurs Abdominal right-sided abdominal pain more in the right upper quadrant, bowel faye nds present nondistended bowel sounds present, no rebound or guarding Extremities no edema no cyanosis Derm warm dry no generalized rash 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 nonfocal Psychiatric cooperative, calm Medications: Inpatient Meds: Current Medications Medications (Trade) Dose Ordered Sig/Mellissa Start Time Stop Time Status Last Admin Dose Admin Fentanyl Citrate (Fentanyl 2ml Vial) 50 mcg PRN Q2HR PRN 04/16/20 18:00 04/18/20 05:17 50 MCG Info (CONTRAST GIVEN -- Rx MONITORING) 1 each PRN DAILY PRN 04/15/20 11:45 04/17/20 11:44 DC Iohexol (Omnipaque 300 Mg/ml) 75 ml 1X ONCE 04/15/20 11:45 04/15/20 11:46 DC 04/15/20 12:30 75 ML Ketorolac Tromethamine (Toradol 30mg Vial) 30 mg 1X ONCE 04/15/20 11:15 04/15/20 11:16 DC 04/15/20 12:54 30 MG Ondansetron HCl (Zofran) 4 mg PRN Q6HRS PRN 04/16/20 18:00 04/17/20 18:08 4 MG Piperacillin Sod/ Tazobactam Sod 3.375 gm/Sodium Chloride 50 ml @ 100 mls/hr Q6HRS 04/16/20 12:00 04/18/20 05:58 100 MLS/HR Sincalide 1.6 mcg/ Sodium Chloride 30 ml @ 120 mls/hr 1X ONCE 04/16/20 14:00 04/16/20 14:14 DC 04/16/20 14:51 120 MLS/HR Sodium Chloride 1,000 ml @ 125 mls/hr Q8H 04/15/20 16:00 04/16/20 15:59 DC 04/16/20 09:26 125 MLS/HR Temazepam (Restoril) 15 mg PRN QHS PRN 04/15/20 20:15 04/17/20 20:38 15 MG Labs: Lab Laboratory Tests Test 04/17/20 11:05 White Blood Count 10.5 x10^3/uL (4.0-11.0) Red Blood Count 3.97 x10^6/uL (3.50-5.40) Hemoglobin 12.9 g/dL (12.0-15.5) Hematocrit 37.8 % (36.0-47.0) Mean Corpuscular Volume 95 fL (79-100) Mean Corpuscular Hemoglobin 33 pg (25-35) Mean Corpuscular Hemoglobin Concent 34 g/dL (31-37) Red Cell Distribution Width 13.1 % (11.5-14.5) Platelet Count 249 x10^3/uL (140-400) Neutrophils (%) (Auto) 68 % (31-73) Lymphocytes (%) (Auto) 25 % (24-48) Monocytes (%) (Auto) 5 % (0-9) Eosinophils (%) (Auto) 1 % (0-3) Basophils (%) (Auto) 1 % (0-3) Neutrophils # (Auto) 7.2 x10^3/uL (1.8-7.7) Lymphocytes # (Auto) 2.7 x10^3/uL (1.0-4.8) Monocytes # (Auto) 0.5 x10^3/uL (0.0-1.1) Eosinophils # (Auto) 0.1 x10^3/uL (0.0-0.7) Basophils # (Auto) 0.1 x10^3/uL (0.0-0.2) Micro Reviewed Objective: Assessment: Abdominal pain, abnormal abdominal ultrasound with cholecystitis; HIDA scan negative Leukocytosis resolved Tobaccoism GERD UDS positive for cocaine Plan: Plan of Care Continue Zon General surgery following;plans noted Monitor labs and cultures Continue supportive care GERTRUDE BREWER MD Apr 18, 2020 08:12
[2020-04-18] MEDS ORDERED: LIDOCAINE 2% PF 5 ML VIAL. ONE (08:49)
[2020-04-18] MEDS ORDERED: PROPOFOL 10 MG/ML (20ML) VIAL. IV ONE (08:49)
[2020-04-18] MEDS ORDERED: ROCURONIUM 50 MG/5 ML VIAL. ONE (08:49)
[2020-04-18] MEDS ORDERED: fentaNYL PF VIAL 100 MCG/2 ML VIAL ONE ×2 (08:49→10:53)
--- NOTE | 2020-04-18 09:29 | NUR ---
SW following. Discussed with RN, pt from home alone, room air, NPO, IV zosyn. Pt having surgery today at 1130. RN advised no SW needs at this time. SW will continue to follow.
[2020-04-18] MEDS ORDERED: SURGICEL HEMOSTAT 4X8 EACH. ONE (10:18)
[2020-04-18] MEDS ORDERED: IOHEXOL 300 MG/ML 50 ML VIAL. ONE (10:18)
[2020-04-18] MEDS ORDERED: BUPIVACAINE MPF 0.5% 30 ML VIAL. ONE (10:18)
[2020-04-18] MEDS ORDERED: DESFLURANE 31 TO 60 MINUTES IH ONE (10:28)
[2020-04-18] MEDS ORDERED: GLYCOPYRROLATE 1 MG/5 ML VIAL. ONE (10:29)
[2020-04-18] MEDS ORDERED: ONDANSETRON PF 4 MG/2 ML VIAL. ONE ×2 (10:29→10:35)
[2020-04-18] MEDS ORDERED: LIDOCAINE 1% PF 2 ML VIAL. ID PRN (10:30)
[2020-04-18] MEDS ORDERED: PROCHLORPERAZINE 10 MG/2 ML VIAL. IVP PRN (10:30)
[2020-04-18] MEDS ORDERED: HYDROmorphone 2 MG/ML VIAL IVP PRN (10:30)
[2020-04-18] MEDS ORDERED: fentaNYL PF VIAL 100 MCG/2 ML VIAL IVP PRN (10:30)
[2020-04-18] MEDS ORDERED: ONDANSETRON PF 4 MG/2 ML VIAL. IVP PRN (10:30)
[2020-04-18] MEDS ORDERED: IV RINGERS,LACTATED 1000ML 1,000 ML IV SCH (10:30)
[2020-04-18] MEDS ORDERED: DEXAMETHASONE SOD PHOS 20 MG/5 ML VIAL. ONE (10:35)
[2020-04-18] MEDS ORDERED: SEVOFLURANE 61 TO 120 MINUTES. IH ONE (10:58)
--- NOTE | 2020-04-18 11:15 | RAD ---
ADDENDUM #1 Addendum: The history section of the report should also state "pain". Electronically signed by: Yamilka Veronica MD (05/16/2020 12:41 PM) [id number] ORIGINAL REPORT EXAM: Intraoperative cholangiogram HISTORY: Cholecystectomy. COMPARISON: 04/16/2020 FINDINGS: 3 fluoroscopic images were obtained during an intraoperative cholangiogram. The images demo nstrate contrast opacification of the downstream biliary tree, downstream pancreatic duct and proxima l small bowel. There is no evidence of a retained stone or stricture. The total fluoroscopy time is 0 .13 minutes. IMPRESSION: Intraoperative cholangiogram without evidence of a retained stone or stricture. Electronically signed by: Yamilka Veronica MD (04/18/2020 11:13 AM) [id number]
--- NOTE | 2020-04-18 11:24 | PDOC4 ---
Operative Note Operative Note Operative Note: Preoperative Diagnosis: Acalculous cholecystitis Postoperative Diagnosis: Same Procedure: Laparoscopic cholecystectomy with intraoperative cholangiogram Surgeons: Mars [employer] Operator: Shamar BENJAMIN Anesthesia: Gen. Estimated Blood Loss: 10 mL Specimen: Gallbladder to pathology Drains: None Complications: None Indications: The patient is a 34-year-old female was admitted with abdominal pain. Her evaluation is suggestive of acalculus cholecystitis. Surgical treatment was offered by means of a laparoscopic cholecystectomy. The risks of surgery were discussed which include bleeding, infection, bile duct injury, bile leak, pain, the potential for additional surgeries or procedures. The patient understands and would like to proceed. Description: The patient was taken to the operating room and laid supine on the operating table. General anesthesia was performed. The abdomen was prepped with ChloraPrep and draped in a standard surgical fashion. A small infraumbilical incision was made with a scalpel. The Veress needle was then inserted and a pneumoperitoneum was then created. A 5 mm trocar was then inserted and the laparoscope was introduced. In the upper midabdomen a 5 mm trocar was inserted and in the right upper quadrant two 2.3 mm mini lap graspers were inserted. The gallbladder was retracted cephalad. The cystic duct was dissected free from surrounding tissues. One clip was placed on the duct near t he gallbladder junction. An opening was made in the duct and a cholangiocatheter placed within and secured with a clip. Using contrast dye and fluoroscopy an intraoperative cholangiogram was performed that appeared unremarkable. The clip and catheter were then withdrawn. Three clips were placed on the cystic duct and it was divided. The cystic artery was then identified, dissected free, doubly clipped and divided as well. The gallbladder was then mobilized away from the liver with cautery. The umbilical 5 millimeter trocar was exchanged for an 11 millimeter trocar. The gallbladder was then placed in an endoscopic bag and extracted at the umbilical trocar site. The fascia there was closed with an 0 Vicryl suture. All blood and irrigation fluid was suctioned and hemostasis was good. The remaining ports were removed and the pneumoperitoneum was relieved. The skin incisions were injected with half percent Marcaine with epinephrine, and all were closed using 4-0 Monocryl suture. Steri-Strips and dressings were then applied. The patient tolerated the procedure well and was sent to the recovery room in stable condition. At the end of the case all counts were correct. SREE IRAHETA MD Apr 18, 2020 11:24
[2020-04-18] MEDS ORDERED: PROCHLORPERAZINE 10 MG/2 ML VIAL. ONE (11:28)
[2020-04-18] MEDS ORDERED: IPRATRPIUM/ALBUTEROL 0.5/2.5MG 3 ML NEBU. ONE (11:32)
[2020-04-18] MEDS ORDERED: MIDAZOLAM HCL/PF 2 MG/2 ML VIAL. ONE (11:32)
[2020-04-18] MEDS ORDERED: MORPHINE SULFATE 2 MG/ML VIAL. ONE (11:38)
[2020-04-18] MEDS: MORPHINE SULFATE 2 MG/ML VIAL. IVP PRN ×2 (11:40→12:17)
[2020-04-18] MEDS ORDERED: MIDAZOLAM HCL/PF 2 MG/2 ML VIAL. IV ONE (12:00)
--- NOTE | 2020-04-18 12:30 | NUR ---
PT RETURNING FROM SURGERY. ALERT BUT DROWSY. VSS ON 2L OF O2. LAP SITES X5 CDI. FREQUENT VS INITIATED. WATER PITCHER FILLED. CALL LIGHT WITHIN REACH.
[2020-04-18] MEDS: oxyCODONE/APAP 5/325 1 TAB TABLET PO PRN ×2 (16:36→19:46)
[2020-04-18] MEDS: TEMAZEPAM 15 MG CAPSULE PO PRN (21:14)
[2020-04-18] MEDS: LACTOBACILLUS RHAMNOSUS GG 1 CAPSULE. PO SCH (21:14)
[2020-04-19 03:00] VITALS: BP 117/67
[2020-04-19] MEDS: fentaNYL PF VIAL 100 MCG/2 ML VIAL IVP PRN (03:43)
[2020-04-19] MEDS: PIPERACILLIN/TAZOBACTAM 3.375 GM in IV NORMAL SALINE 50ML 50 ML IV SCH (05:29)
[2020-04-19] MEDS: oxyCODONE/APAP 5/325 1 TAB TABLET PO PRN ×3 (05:30→12:07)
[2020-04-19 07:00] VITALS: BP 115/83
--- NOTE | 2020-04-19 07:40 | PDOC ---
[facility] [facility] PROGRESS NOTE Date of Service DOS: DATE: 04/19/20 TIME: 07:39 Chief Complaint Chief Complaint Acute abdominal pain cholecystitis ruled out, possible biliary colic Pending H. pylori antigen test History of gastric ulcers Leukocytosis Tobaccoism History of DVT GERD History of renal calculi UDS positive for cocaine Admit to medicine Surgery consult Serial abdominal exams Consider GI consult if dilated CBD and concern for choledocholithiasis IV Dilaudid as needed N.p.o. 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 She took some home meds, but that did not seem to help. It is worse with food, better with no food. She decided to have her 18-year-old son drive her into the hospital. Ultrasound of the abdomen suspicious for cholecystitis and admitted for IV pain control, antibiotics and consult General Surgery. 04/16: No acute events overnight. Patient is resting comfortably bedside. Patient seen and examined. Patient's chart, labs, images were reviewed and discussed with RN 04/17: No acute events overnight. HIDA scan was negative. Diet advanced, but pain returned. Patient d/w surgery risks vs benefits of surgery and she elected to proceed 04/18: To OR for Lap Aniyah No acute overnight events. Pain improved significantly postoperatively. Good appetite. Passing flatus. No nausea or vomiting. She is asked for a work note for light duty restrictions have advised at least the next 2 weeks but also follow-up with surgery for further recommendations. Vitals/I&O Vitals/I&O: Vital Signs Date Time Temp Pulse Resp B/P (MAP) Pulse Ox O2 Delivery O2 Flow Rate FiO2 04/19/20 06:26 20 98 Room Air 04/19/20 03:00 98.0 72 117/67 (84) 98.0 04/18/20 16:45 2.0 I & O 04/18/20 04/18/20 04/19/20 15:00 23:00 07:00 Output Total 235 ml 0 ml Balance -235 ml 0 ml Physical Exam Physical Exam: General alert oriented x3 female in no acute distress lying comfortably in bed HEENT normocephalic atraumatic anicteric no thrush Neck supple no JVD no lymphadenopathy Lungs clear bilaterally no wheezing Heart S1-S2 no gallops or murmurs Abdominal right-sided abdominal pain more in the right upper quadrant, bowel sounds present nondistended bowel sounds present, no rebound or guarding Extremities no edema no cyanosis Derm warm dry no generalized rash 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 Medications: Current Medications Medications (Trade) Dose Ordered Sig/Mellissa Route PRN Reason Start Time Stop Time Status Last Admin Dose Admin Fentanyl Citrate (Fentanyl 2ml Vial) 50 mcg PRN Q5MIN PRN IVP MODERATE TO SEVERE PAIN 04/18/20 10:30 04/18/20 20:00 DC 04/18/20 11:25 Morphine Sulfate (Morphine Sulfate) 1 mg PRN Q10MIN PRN IVP SEVERE PAIN 7-10 04/18/20 10:30 04/18/20 20:00 DC 04/18/20 12:17 Prochlorperazine Edisylate (Compazine) 5 mg PACU PRN PRN IVP NAUSEA, MRX1 04/18/20 10:30 04/18/20 20:00 DC 04/18/20 11:30 Iohexol (Omnipaque 300 Mg/ml) 50 ml STK-MED ONCE .ROUTE 04/18/20 10:18 04/18/20 10:18 DC 04/18/20 10:57 Bupivacaine HCl (Sensorcaine Mpf 0.5%) 30 ml STK-MED ONCE .ROUTE 04/18/20 10:18 04/18/20 10:18 DC 04/18/20 10:48 Lactobacillus Rhamnosus (Culturelle) 1 cap BID PO 04/18/20 21:00 04/18/20 21:14 Oxycodone/ Acetaminophen (Percocet 5/325) 1 tab PRN Q4HRS PRN PO PAIN MILD TO MOD 04/18/20 11:30 04/18/20 19:46 Oxycodone/ Acetaminophen (Percocet 5/325) 2 tab PRN Q4HRS PRN PO PAIN SEVERE 04/18/20 11:30 04/19/20 06:26 Midazolam HCl (Versed) 1 mg 1X ONCE IV 04/18/20 12:00 04/18/20 12:01 DC 04/18/20 11:41 Justifications for Admission Other Justification ARY CHUNG MD Apr 19, 2020 07:40
[2020-04-19] MEDS: LACTOBACILLUS RHAMNOSUS GG 1 CAPSULE. PO SCH (08:38)
--- NOTE | 2020-04-19 09:20 | PDOC ---
Infectious Disease Note Subjective: Subjective Patient feels better Has postop site pain but under control with pain medication Vital Signs: Vital Signs Vital Signs Date Time Temp Pulse Resp B/P (MAP) Pulse Ox O2 Delivery O2 Flow Rate FiO2 04/19/20 08:00 Room Air 04/19/20 07:00 98.1 63 18 115/83 (94) 99 98.1 04/18/20 16:45 2.0 Physical Exam: PHYSICAL EXAM General alert oriented x3 female in no acute distress lying comfortably in bed HEENT normocephalic atraumatic anicteric no thrush Neck supple no JVD no lymphadenopathy Lungs clear bilaterally no wheezing Heart S1-S2 no gallops or murmurs Abdominal right-sided abdominal pain more in the right upper quadrant, bowel sounds present nondistended bowel sounds present, no rebound or guarding Extremities no edema no cyanosis Derm warm dry no generalized rash multiple tattoos [employer]MINISTRATIVE [employer] alert oriented x3 grossly nonfocal Psychiatric cooperative, calm Medications: Inpatient Meds: Current Medications Medications (Trade) Dose Ordered Sig/Mellissa Start Time Stop Time Status Last Admin Dose Admin Albuterol/ Ipratropium (Duoneb) 3 ml STK-MED ONCE 04/18/20 11:32 04/18/20 11:32 DC Bupivacaine HCl (Sensorcaine Mpf 0.5%) 30 ml STK-MED ONCE 04/18/20 10:18 04/18/20 10:18 DC 04/18/20 10:48 10 ML Cellulose (Surgicel Hemostat 4x8) 1 each STK-MED ONCE 04/18/20 10:18 04/18/20 10:19 DC Desflurane (Suprane) 30 ml STK-MED ONCE 04/18/20 10:28 04/18/20 10:29 DC Dexamethasone Sodium Phosphate (Decadron) 20 mg STK-MED ONCE 04/18/20 10:35 04/18/20 10:35 DC Fentanyl Citrate (Fentanyl 2ml Vial) 100 mcg STK-MED ONCE 04/18/20 10:53 04/18/20 10:53 DC Glycopyrrolate (Robinul) 1 mg STK-MED ONCE 04/18/20 10:29 04/18/20 10:29 DC Hydromorphone HCl (Dilaudid) 0.5 mg PRN Q10MIN PRN 04/18/20 10:30 04/18/20 20:00 DC Info (CONTRAST GIVEN -- Rx MONITORING) 1 each PRN DAILY PRN 04/15/20 11:45 04/17/20 11:44 DC Iohexol (Omnipaque 300 Mg/ml) 50 ml STK-MED ONCE 04/18/20 10:18 04/18/20 10:18 DC 04/18/20 10:57 5 ML Ketorolac Tromethamine (Toradol 30mg Vial) 30 mg 1X ONCE 04/15/20 11:15 04/15/20 11:16 DC 04/15/20 12:54 30 MG Lactobacillus Rhamnosus (Culturelle) 1 cap BID 04/18/20 21:00 04/19/20 08:38 1 CAP Lidocaine HCl (Lidocaine Pf 2% Vial) 5 ml STK-MED ONCE 04/18/20 08:49 04/18/20 08:50 DC Lidocaine HCl (Xylocaine-Mpf 1% 2ml Vial) 2 ml 1X PRN PRN 04/18/20 10:30 04/18/20 20:00 DC Midazolam HCl (Versed) 1 mg 1X ONCE 04/18/20 12:00 04/18/20 12:01 DC 04/18/20 11:41 1 MG Morphine Sulfate (Morphine Sulfate) 2 mg STK-MED ONCE 04/18/20 11:38 04/18/20 11:38 DC Ondansetron HCl (Zofran) 4 mg STK-MED ONCE 04/18/20 10:35 04/18/20 10:35 DC Oxycodone/ Acetaminophen (Percocet 5/325) 2 tab PRN Q4HRS PRN 04/18/20 11:30 04/19/20 06:26 2 TAB Piperacillin Sod/ Tazobactam Sod 3.375 gm/Sodium Chloride 50 ml @ 100 mls/hr Q6HRS 04/16/20 12:00 04/19/20 05:29 100 MLS/HR Prochlorperazine Edisylate (Compazine) 10 mg STK-MED ONCE 04/18/20 11:28 04/18/20 11:29 DC Propofol (Diprivan) 200 mg STK-MED ONCE 04/18/20 08:49 04/18/20 08:50 DC Ringer's Solution 1,000 ml @ 30 mls/hr Q24H 04/18/20 10:30 04/18/20 22:29 DC Rocuronium [place] (Zemuron) 50 mg STK-MED ONCE 04/18/20 08:49 04/18/20 08:50 DC Sevoflurane (Ultane) 60 ml STK-MED ONCE 04/18/20 10:58 04/18/20 10:58 DC Sincalide 1.6 mcg/ Sodium Chloride 30 ml @ 120 mls/hr 1X ONCE 04/16/20 14:00 04/16/20 14:14 DC 04/16/20 14:51 120 MLS/HR Sodium Chloride 1,000 ml @ 125 mls/hr Q8H 04/15/20 16:00 04/16/20 15:59 DC 04/16/20 09:26 125 MLS/HR Temazepam (Restoril) 15 mg PRN QHS PRN 04/15/20 20:15 04/18/20 21:14 15 MG Labs: Micro Reviewed Objective: Assessment: Abdominal pain Acalculous cholecystitis S/P Laparoscopic cholecystectomy with intraoperative cholangiogram Leukocytosis resolved Tobaccoism GERD UDS positive for cocaine Plan: Plan of Care DC Zosyn Augmentin Monitor labs and cultures Continue supportive care GERTRUDE BREWER MD Apr 19, 2020 09:20
--- NOTE | 2020-04-19 09:28 | NUR ---
SW following. Discussed with RN, pt from home alone, room air, regular diet, COVID-19 negative. Pt on IV zosyn. Pt had surgery 04/18/20, RN anticipates possible discharge home with self care today. SW will continue to follow.
--- NOTE | 2020-04-19 09:37 | PDOC3 ---
Discharge Summary Visit Information Date of Admission: Apr 15, 2020 Date of Discharge: Apr 19, 2020 Admitting Diagnosis: Cholecystitis Final Diagnosis Problems Medical Problems: (1) Cholecystitis Status: Acute Brief Hospital Course Allergies Allergies Coded Allergies Type Severity Reaction Last Updated Verified ciprofloxacin Allergy Intermediate 04/16/20 Yes Vital Signs Vital Signs Date Time Temp Pulse Resp B/P (MAP) Pulse Ox O2 Delivery O2 Flow Rate FiO2 04/19/20 08:00 Room Air 04/19/20 07:00 98.1 63 18 115/83 (94) 99 98.1 04/18/20 16:45 2.0 Lab Results Laboratory Tests Test 04/17/20 11:05 White Blood Count 10.5 x10^3/uL (4.0-11.0) Red Blood Count 3.97 x10^6/uL (3.50-5.40) Hemoglobin 12.9 g/dL (12.0-15.5) Hematocrit 37.8 % (36.0-47.0) Mean Corpuscular Volume 95 fL (79-100) Mean Corpuscular Hemoglobin 33 pg (25-35) Mean Corpuscular Hemoglobin Concent 34 g/dL (31-37) Red Cell Distribution Width 13.1 % (11.5-14.5) Platelet Count 249 x10^3/uL (140-400) Neutrophils (%) (Auto) 68 % (31-73) Lymphocytes (%) (Auto) 25 % (24-48) Monocytes (%) (Auto) 5 % (0-9) Eosinophils (%) (Auto) 1 % (0-3) Basophils (%) (Auto) 1 % (0-3) Neutrophils # (Auto) 7.2 x10^3/uL (1.8-7.7) Lymphocytes # (Auto) 2.7 x10^3/uL (1.0-4.8) Monocytes # (Auto) 0.5 x10^3/uL (0.0-1.1) Eosinophils # (Auto) 0.1 x10^3/uL (0.0-0.7) Basophils # (Auto) 0.1 x10^3/uL (0.0-0.2) Brief Hospital Course Ms Brennan is a 34-year-old healthy young female who works at [employer] in the kitchen who p/w RLQ shooting pains that radiate to the mid side of her abdomen. She took some home meds, but that did not seem to help. It is worse with food, better with no food. She decided to have her 18-year-old son drive her into the hospital. Ultrasound of the abdomen suspicious for cholecystitis and admitted for IV pain control, antibiotics and consult General Surgery. 04/16: No acute events overnight. Patient is resting comfortably bedside. Patient seen and examined. Patient's chart, labs, images were reviewed and discussed with RN 04/17: No acute events overnight. HIDA scan was negative. Diet advanced, but pain returned. Patient d/w surgery risks vs benefits of surgery and she elected to proceed 04/18: To OR for Lap Aniyah No acute overnight events. Pain improved significantly postoperatively. Good appetite. Passing flatus. No nausea or vomiting. She is asked for a work note for light duty restrictions have advised at least the next 2 weeks but also follow-up with surgery for further recommendations. Consults: General surgery Problem list: Acute abdominal pain cholecystitis, possible biliary colic s/p lap aniyah 04/08/20 Pending H. pylori antigen test History of gastric ulcers Leukocytosis Tobaccoism History of DVT GERD History of renal calculi UDS positive for cocaine Greater than 30 minutes spent on d/c Discharge Information Condition at Discharge: Improved Follow Up: Weeks (2) Disposition/Orders: D/C to Home Scheduled Omeprazole (Omeprazole) 40 Mg Capsule.dr, 40 MG PO HS for gerd, (Reported) Entered as Reported by: VENANCIO TRIPATHI on 04/09/191746 Last Action: Reviewed on 04/16/20428 by VICENTE AVILES Progesterone,Micronized (Progesterone) 200 Mg Capsule, 1 CAP PO QHS for hormone replacement for 30 Days, #30 Ref 0 (Reported) Entered as Reported by: VENANCIO TRIPATHI on 04/09/191746 Last Action: Reviewed on 04/16/20428 by VICENTE AVILES Justicifation of Admission Dx: Justifications for Admission: Justification of Admission Dx: Yes ARY CHUNG MD Apr 19, 2020 09:37
[2020-04-19 11:00] VITALS: BP 124/87
[2020-04-19] MEDS ORDERED: AMOXICILLIN/K CLAV 875/125MG TABLET. PO SCH (11:00)
[2020-04-19] MEDS ORDERED: OXYC1TAB15 PO (11:30)
--- NOTE | 2020-04-19 11:36 | PDOC ---
SURGICAL PROGRESS NOTE DATE: 04/19/20 TIME: 11:35 Subjective sore overall improved tolerating diet urinating Vital Signs Vital Signs Date Time Temp Pulse Resp B/P (MAP) Pulse Ox O2 Delivery O2 Flow Rate FiO2 04/19/20 11:00 98.6 67 18 124/87 (99) 99 Room Air 98.6 04/18/20 16:45 2.0 I&O Intake and Output 04/19/20 07:00 Output Total 235 ml Balance -235 ml Output Urine Total 225 ml Estimated Blood Loss 10 ml # Voids 3 General: Alert, Oriented X3 Abdomen: Soft, Other (lap dressings dry) Problem List Problems Medical Problems: (1) Cholecystitis Status: Acute Assessment/Plan s/p shirley ok to [place] home Justicifation of Admission Dx: Justifications for Admission: Justification of Admission Dx: Yes MARSHALL NELSON APRN Apr 19, 2020 11:36
--- NOTE | 2020-04-19 14:36 | NUR ---
Pt discharged home with self care. Discharge instructions and prescriptions discussed. Pt verbalized understanding. IV removed. Pt assisted to wheelchair and was taken to main entrance and secured in car with transportation.
== END 2020-04-19 14:39 | disposition home or self-care (01) | DRG 419 ==
LOC: ER 10:28 → 4 NORTH 15:21
PROVIDERS: ADMIT Internal Medicine; ATTEND Internal Medicine
PROC: BF101ZZ Fluoroscopy of Bile Ducts using Low Osmolar Contrast (ICD-10-PCS; 2020-04-18)
PROC: 0FT44ZZ Resection of Gallbladder, Percutaneous Endoscopic Approach (ICD-10-PCS; principal; 2020-04-18 11:30)
DX: K81.9 Cholecystitis, unspecified (principal); K76.0 Fatty (change of) liver, not elsewhere classified; K21.9 Gastro-esophageal reflux disease without esophagitis; F17.200 Nicotine dependence, unspecified, uncomplicated; G89.29 Other chronic pain; M54.9 Dorsalgia, unspecified; Z98.891 History of uterine scar from previous surgery; Z20.822 Contact with and (suspected) exposure to COVID-19; Z88.1 Allergy status to other antibiotic agents; Z86.718 Personal history of other venous thrombosis and embolism; Z83.3 Family history of diabetes mellitus; Z87.11 Personal history of peptic ulcer disease; Z87.442 Personal history of urinary calculi; K83.8 Other specified diseases of biliary tract
CPT/HCPCS: 36415; 74177; 74300; 76705; 78227; 80053; 80307; 81001; 81025; 83690; 85007; 85025; 87086; 87426; 88304; 96361; 96365; 96375; 96376; 99285; A9537; J0780; J1100; J1885; J2250; J2270; J2405; J2543; J2704; J2805; J3010; J3490; J7030; J7120; Q9967; U0003; G0378